=== PATIENT | male | born 1970 | race Caucasian/White ===

== ENCOUNTER → 2017-11-26 09:25 | Outpatient (CLI) | payer MEDICARE, SELFPAY ==
[2017-11-26 09:44] LABS: Basophils % 0.5 % (0.1-2.0); Eosinophils # 0.1 K/mm3 (0.0-0.4); Eosinophils % 2.9 % (0.1-12.0); Hematocrit 35.9 % (42.0-52.0); Hemoglobin 12.1 g/dL (14.1-18.0); Lymphocytes # 1.7 K/mm3 (0.7-4.5); Lymphocytes % 34.5 K/mm3 (10-50); Mean Corpuscular HGB Conc 33.6 g/dL (31.8-35.4); Mean Corpuscular Hemoglobin 30.1 pg (27.0-31.2); Mean Corpuscular Volume 89.6 fl (80-94); Monocytes # 0.2 K/mm3 (0.1-1.0); Monocytes % 4.6 % (1.7-9.3); Neutrophils # 2.8 K/mm3 (1.8-7.8); Neutrophils % 57.5 % (37.0-80.0); Platelet Count 201 K/mm3 (142-424); Red Blood Count 4.01 M/mm3 (4.60-6.20); Red Cell Distribution Width 13.8 % (11.5-17.5); White Blood Count 4.9 K/mm3 (4.8-10.8)
[2017-11-26 10:50] LABS: Anion Gap 11.6 mEq/L (5-15); Blood Urea Nitrogen 15 mg/dL (7-18); Carbon Dioxide 27 mmol/L (21.0-32.0); Chloride 106 mmol/L (98-107); Creatinine,Serum 1.15 mg/dL (0.70-1.30); Estimated Glomerular Filt Rate 68 ml/min (>60); GFR (African American) 82 ML/MIN (>60); Glucose 122 mg/dL (74-106); Potassium 4.6 mmoL/L (3.5-5.1); Sodium 140 mmol/L (136-145)
== END ==
PROVIDERS: PCP Internal Medicine; Visit Provider Internal Medicine
DX: R53.83 Other fatigue (principal); R06.02 Shortness of breath
CPT/HCPCS: 36415; 80048; 83880; 85025

== ENCOUNTER → 2017-12-07 07:35 | Outpatient (CLI) | payer MEDICARE, SELFPAY | PROVIDERS: PCP Internal Medicine; Visit Provider Internal Medicine | DX: R06.09 Other forms of dyspnea (principal); R07.89 Other chest pain; I10 Essential (primary) hypertension; I50.9 Heart failure, unspecified; Z95.0 Presence of cardiac pacemaker; I51.9 Heart disease, unspecified; I27.20 Pulmonary hypertension, unspecified; F41.9 Anxiety disorder, unspecified; I42.5 Other restrictive cardiomyopathy; N18.2 Chronic kidney disease, stage 2 (mild); I67.1 Cerebral aneurysm, nonruptured | CPT/HCPCS: 93017 ==

== ENCOUNTER → 2017-12-29 15:36 | Outpatient (CLI) | payer MEDICARE, SELFPAY ==
[2017-12-29 16:02] LABS: Blood Urea Nitrogen 16 mg/dL (7-18); Carbon Dioxide 31 mmol/L (21.0-32.0); Chloride 101 mmol/L (98-107); Estimated Glomerular Filt Rate 54 ml/min (>60); GFR (African American) 65 ML/MIN (>60); Magnesium 1.6 mg/dL (1.4-2.2); Sodium 138 mmol/L (136-145)
[2017-12-29 16:22] LABS: Glucose 96 mg/dL (74-106)
== END ==
PROVIDERS: Visit Provider Physician Assistant
DX: I10 Essential (primary) hypertension (principal); R06.09 Other forms of dyspnea; I50.9 Heart failure, unspecified; I51.9 Heart disease, unspecified; I27.20 Pulmonary hypertension, unspecified; N18.2 Chronic kidney disease, stage 2 (mild)
CPT/HCPCS: 36415; 80048; 83735

== ENCOUNTER → 2018-03-15 14:07 | Outpatient (CLI) | payer MEDICARE, SELFPAY | PROVIDERS: PCP Internal Medicine; Visit Provider Internal Medicine Cardiovascular Disease | DX: R07.9 Chest pain, unspecified (principal); I10 Essential (primary) hypertension; I51.9 Heart disease, unspecified; R06.00 Dyspnea, unspecified; I27.20 Pulmonary hypertension, unspecified; Z95.0 Presence of cardiac pacemaker | CPT/HCPCS: 93306 ==

== ENCOUNTER → 2018-03-26 07:39 | Outpatient (CLI) | payer MEDICARE, SELFPAY ==
[2018-03-26 09:36] LABS: Anion Gap 14.6 mEq/L (5-15); Blood Urea Nitrogen 22 mg/dL (7-18); Carbon Dioxide 26 mmol/L (21.0-32.0); Chloride 102 mmol/L (98-107); Creatinine,Serum 1.32 mg/dL (0.70-1.30); Estimated Glomerular Filt Rate 58 ml/min (>60); GFR (African American) 70 ML/MIN (>60); Glucose 141 mg/dL (74-106); Potassium 4.6 mmoL/L (3.5-5.1); Sodium 138 mmol/L (136-145)
== END ==
PROVIDERS: Visit Provider Physician Assistant
DX: R06.02 Shortness of breath (principal); I27.20 Pulmonary hypertension, unspecified
CPT/HCPCS: 36415; 80048; 83880

== ENCOUNTER → 2018-09-20 12:04 | Outpatient (CLI) | payer MEDICARE, SELFPAY ==
[2018-09-20 13:18] LABS: Anion Gap 15.4 mEq/L (5-15); Blood Urea Nitrogen 24 mg/dL (7-18); Calcium 9.2 mg/dL (8.5-10.1); Carbon Dioxide 27 mmol/L (21.0-32.0); Chloride 101 mmol/L (98-107); Creatinine,Serum 1.53 mg/dL (0.70-1.30); Estimated Glomerular Filt Rate 48 ml/min (>60); GFR (African American) 59 ML/MIN (>60); Glucose 128 mg/dL (74-106); Potassium 4.4 mmoL/L (3.5-5.1); Sodium 139 mmol/L (136-145)
== END ==
PROVIDERS: Visit Provider Physician Assistant
DX: I51.9 Heart disease, unspecified (principal); N18.2 Chronic kidney disease, stage 2 (mild); R06.00 Dyspnea, unspecified; T82.111A Breakdown (mechanical) of cardiac pulse generator (battery), initial encounter; Z95.0 Presence of cardiac pacemaker
CPT/HCPCS: 36415; 80048

== ENCOUNTER → 2018-11-22 12:20 | Outpatient (CLI) | payer MEDICARE, SELFPAY | PROVIDERS: PCP Internal Medicine; Visit Provider Urology | DX: R00.0 Tachycardia, unspecified (principal); R00.2 Palpitations; R06.09 Other forms of dyspnea | CPT/HCPCS: 93270 ==

== ENCOUNTER → 2018-12-08 10:59 | Outpatient (CLI) | payer MEDICARE, SELFPAY ==
[2018-12-08 12:26] LABS: Anion Gap 12.5 mEq/L (5-15); Blood Urea Nitrogen 21 mg/dL (7-18); Calcium 9.1 mg/dL (8.5-10.1); Carbon Dioxide 29 mmol/L (21.0-32.0); Chloride 104 mmol/L (98-107); Creatinine,Serum 1.35 mg/dL (0.70-1.30); Estimated Glomerular Filt Rate 56 ml/min (>60); GFR (African American) 68 ML/MIN (>60); Glucose 104 mg/dL (74-106); Potassium 4.5 mmoL/L (3.5-5.1); Sodium 141 mmol/L (136-145)
== END ==
PROVIDERS: Visit Provider Urology
DX: I27.20 Pulmonary hypertension, unspecified; I50.9 Heart failure, unspecified; I51.89 Other ill-defined heart diseases; I67.1 Cerebral aneurysm, nonruptured; N18.2 Chronic kidney disease, stage 2 (mild); R00.0 Tachycardia, unspecified; R00.2 Palpitations; R06.09 Other forms of dyspnea; R07.89 Other chest pain; T82.11 Breakdown (mechanical) of cardiac electronic device; Z95.0 Presence of cardiac pacemaker; F41.9 Anxiety disorder, unspecified
CPT/HCPCS: 36415; 80048

== ENCOUNTER → 2018-12-22 14:25 | Outpatient (CLI) | payer MEDICARE, SELFPAY ==
--- NOTE | 2018-12-22 14:28 | CA_ITS ---
PROCEDURE: 2-D M-mode and color Doppler study INDICATIONS FOR THE TEST: Chest pain + COPD Heart Murmur Tobacco Smoking Palpitations Fatigue Syncope Edema Hypertension+Diabetes Mellitus Rheumatic Fever SOB+LEÓN Obesity Hyperlipidemia+ Family History HD Additional History PACER,CHF,PUL HTN,CM,CAD,CKD PATIENT INFORMATION HEIGHT: 68 WEIGHT:231 GENDER: Male B/P:114/70 2-D/M-MODE INTERPRETATION: 2-D MEASUREMENTS OBSERVED VALUES IN CMS Right Ventricular Dimension (RVDd) 1.7 Interventricular Septum (Thickness)(IVsd) 0.9 Left Ventricular Internal Dimensions(LVIDd) 5.7 Left Ventricular Posterior Wall (Thickness)(LVPWd) 0.9 Aortic Root 3.0 Aortic Cusp Separation 2.3 Left Atrial Dimensions (LAD) 3.2 2D 1. Left atrium is mildly enlarged, left ventricle is normal size, mild concentric left ventricular hypertrophy, visually estimated ejection fraction of 55% with no regional wall motion abnormality. 2. The right atrium and right ventricle are mildly enlarged with normal contractility, there is pacemaker lead seen in the right atrium and right ventricle. 3. The aortic valve is thickened and calcified leaflet continue to display mobility. 4. The mitral and tricuspid valve leaflets are minimally thickened. 5. The pulmonic valve is poorly visualized. 6. No significant pericardial effusion noted. DOPPLER INTERROGATION: Doppler interrogation of the aortic, mitral and tricuspid valvular presence of mild mitral and tricuspid regurgitation, tricuspid regurgitation jet velocity is inadequate for calculation of the right ventricular systolic pressure, diastolic parameters are inconclusive. CONCLUSION: 1. Biatrial enlargement, normal left ventricular size, mild concentric left ventricular hypertrophy, visually estimated ejection fraction of 55% with no regional wall motion abnormality, diastolic parameters are inconclusive. 2. Mildly enlarged right ventricle with normal contractility. 3. Mild mitral and tricuspid regurgitation 4. No significant pericardial effusion noted.
== END ==
PROVIDERS: PCP Internal Medicine; Visit Provider Internal Medicine
DX: I50.9 Heart failure, unspecified; I27.20 Pulmonary hypertension, unspecified; I42.5 Other restrictive cardiomyopathy; I51.89 Other ill-defined heart diseases; N18.2 Chronic kidney disease, stage 2 (mild); R06.09 Other forms of dyspnea
CPT/HCPCS: 93306

== ENCOUNTER → 2019-01-12 16:05 | Outpatient (CLI) | payer MEDICARE, SELFPAY ==
[2019-01-12 19:46] LABS: Anion Gap 13.7 mEq/L (5-15); Blood Urea Nitrogen 21 mg/dL (7-18); Calcium 9.4 mg/dL (8.5-10.1); Carbon Dioxide 29 mmol/L (21.0-32.0); Chloride 102 mmol/L (98-107); Estimated Glomerular Filt Rate 58 ml/min (>60); GFR (African American) 71 ML/MIN (>60); Glucose 104 mg/dL (74-106); Potassium 3.7 mmoL/L (3.5-5.1); Sodium 141 mmol/L (136-145)
== END ==
PROVIDERS: Visit Provider Urology
DX: I42.5 Other restrictive cardiomyopathy (principal); R06.09 Other forms of dyspnea; Z95.0 Presence of cardiac pacemaker
CPT/HCPCS: 36415; 80048; 83880

== ENCOUNTER → 2019-01-27 13:47 | Outpatient (CLI) | payer MEDICARE, SELFPAY | PROVIDERS: PCP Internal Medicine; Visit Provider Internal Medicine Cardiovascular Disease | DX: R00.2 Palpitations (principal) | CPT/HCPCS: 93005 ==

== ENCOUNTER → 2019-05-20 08:25 | Outpatient (CLI) | payer MEDICARE, SELFPAY ==
[2019-05-20 09:18] LABS: Basophils % 0.7 % (0.1-2.0); Eosinophils # 0.2 K/mm3 (0.0-0.4); Hemoglobin 12.1 g/dL (14.1-18.0); Lymphocytes # 1.6 K/mm3 (0.7-4.5); Lymphocytes % 37.2 % (10-50); Mean Corpuscular Hemoglobin 27.9 pg (27.0-31.2); Mean Corpuscular Volume 87.1 fl (80-94); Monocytes # 0.2 K/mm3 (0.1-1.0); Monocytes % 4.5 % (1.7-9.3); Neutrophils # 2.3 K/mm3 (1.8-7.8); Neutrophils % 53.6 % (37.0-80.0); Platelet Count 209 K/mm3 (142-424); Red Blood Count 4.36 M/mm3 (4.60-6.20); Red Cell Distribution Width 14.4 % (11.5-17.5); White Blood Count 4.3 K/mm3 (4.8-10.8)
[2019-05-20 10:19] LABS: Alanine Aminotransferase 97 U/L (12-78); Albumin Level 3.8 gm/dL (3.4-5.0); Albumin/Globulin Ratio 1.2 (1.1-1.8); Alkaline Phosphatase 65 U/L (46-116); Aspartate Amino Transferase 54 U/L (15-37); Bilirubin,Total 1.3 mg/dL (0.2-1.0); Blood Urea Nitrogen 21 mg/dL (7-18); Calcium 9.2 mg/dL (8.5-10.1); Carbon Dioxide 30 mmol/L (21.0-32.0); Chloride 100 mmol/L (98-107); Chol/HDL Ratio 7.2 (1-3.5); Cholesterol 201 mg/dL (140-200); Creatinine,Serum 1.27 mg/dL (0.70-1.30); Estimated Glomerular Filt Rate 60 ml/min (>60); GFR (African American) 73 ML/MIN (>60); Globulin 3.1 gm/dl (1.3-3.2); Glucose 170 mg/dL (74-106); HDL Cholesterol 28 mg/dL (27-67); Sodium 137 mmol/L (136-145); Thyroid Stimulating Hormone 1.56 uIU/ml (0.358-3.740); Total Protein,Serum 6.9 gm/dL (6.4-8.2)
[2019-05-20 10:40] LABS: Triglycerides 541 mg/dL (30-200)
[2019-05-20 11:11] LABS: Erythrocyte Sedimentation Rate 19 mm/hr (0-15)
[2019-05-20 12:52] LABS: Hemoglobin A1C 7.6 % (0.0-7.0)
[2019-05-21 18:42] LABS: Folate 15.3 ng/mL (>3.0); Vitamin B12 479 pg/mL (232-1245)
== END ==
PROVIDERS: Visit Provider Internal Medicine
DX: I10 Essential (primary) hypertension (principal); G60.9 Hereditary and idiopathic neuropathy, unspecified; E78.5 Hyperlipidemia, unspecified; Z79.899 Other long term (current) drug therapy
CPT/HCPCS: 36415; 80053; 80061; 82607; 82746; 83036; 83655; 84443; 85025; 85651

== ENCOUNTER → 2019-07-26 11:14 | Outpatient (CLI) | payer MEDICARE, SELFPAY ==
[2019-07-26 11:20] LABS: Basophils % 0.6 % (0.1-2.0); Eosinophils # 0.2 K/mm3 (0.0-0.4); Eosinophils % 2.9 % (0.1-12.0); Hematocrit 39.2 % (42.0-52.0); Hemoglobin 12.5 g/dL (14.1-18.0); Lymphocytes # 2.3 K/mm3 (0.7-4.5); Lymphocytes % 33.4 % (10-50); Mean Corpuscular HGB Conc 31.9 g/dL (31.8-35.4); Mean Corpuscular Volume 90.9 fl (80-94); Mean Platelet Volume 9.4 fl (7.4-10.4); Monocytes # 0.3 K/mm3 (0.1-1.0); Monocytes % 4.5 % (1.7-9.3); Neutrophils % 58.7 % (37.0-80.0); Platelet Count 254 K/mm3 (142-424); Red Blood Count 4.31 M/mm3 (4.60-6.20); Red Cell Distribution Width 14.8 % (11.5-17.5); White Blood Count 6.8 K/mm3 (4.8-10.8)
--- NOTE | 2019-07-26 14:11 | CT_ITS ---
PROCEDURE: CT ABDOMEN PELVIS WO CON CLINICAL HISTORY: LLQ,RLQ PAIN NAUSEA AND VOMITING COMPARISON: ABDPELW/O CT ABD PELVIS W/O CONTRAST from 05/22/2013 TECHNIQUE: Axial images obtained with sagittal and coronal reformats. All CT scans at the facility use one or more dose reduction, viz: automated exposure control, ma/kV adjustment per patient size (including targeted exams where dose is matched to indication, i.e. head), or iterative reconstruction technique. FINDINGS: Lung bases are clear. Liver is borderline slightly lower density compared to the spleen without focal abnormality. Gallbladder, pancreas, spleen, adrenal glands and kidneys are normal. Visualized portions of the ureters and urinary bladder are normal. Aorta is normal. GI tract is unremarkable without dilatation or wall thickening. Appendix is normal. There is no free air or ascites. There is diffuse peristalsis of the entire sigmoid colon. Pelvic structures are otherwise normal. There is no acute osseous process. IMPRESSION: Borderline mild hepatic steatosis. No acute abnormality. Dictated by: Tenzin Shannon 07/26/2019 14:38 Electronically signed by Tenzin Shannon in [facility] 07/26/2019 14:38
== END ==
LOC: LAB.DROPOF 11:56 → RAD 12:30
PROVIDERS: PCP Internal Medicine; Visit Provider Internal Medicine
DX: R10.31 Right lower quadrant pain (principal); R10.32 Left lower quadrant pain; R11.2 Nausea with vomiting, unspecified
CPT/HCPCS: 74176; 85025

== ENCOUNTER → 2019-09-08 13:22 | Outpatient (CLI) | payer MEDICARE, SELFPAY ==
--- NOTE | 2019-09-08 13:23 | CT_ITS ---
PROCEDURE: CT CHEST WO CON CLINICAL INDICATION: constrictive pericarditis Chest pain, shortness of air, constrictive pericarditis COMPARISON: CTAC CTA-CHEST from 11/10/2016 CT ABDOMEN PELVIS WO CON from 07/26/2019 TECHNIQUE: Axial images obtained with sagittal and coronal reformats. All CT scans at the facility use one or more dose reduction, viz: automated exposure control, ma/kV adjustment per patient size (including targeted exams where dose is matched to indication, i.e. head), or iterative reconstruction technique. FINDINGS: HEART: Bipolar pacemaker is present from left subclavian approach. There is normal heart size. The pericardium does not appear thickened. No pericardial effusion. No evidence of aortic aneurysm MEDIASTINAL AND HILAR STRUCTURES: No mediastinal or hilar mass evident. No dominant adenopathy. LUNGS:There is a 4 mm nodule in the right upper lobe anteriorly and a 4 mm nodule in the right upper lobe laterally. These may been present previously but difficult to ascertain due to mild degree of motion artifact on that exam. A fissural nodule is present in the right major fissure. Calcified granulomas are present in the right lower lobe and there are calcified nodes in the right hilum. A subpleural 8 mm nodules present in the right upper lobe posteriorly in the para fissural region. PLEURAL SPACES: No significant effusion. No evidence of pneumothorax. BONY STRUCTURES: No acute bony abnormalities apparent. LYMPH NODES: No enlarged lymph nodes evident. UPPER ABDOMEN: Unremarkable. ADDITIONAL FINDINGS: No other significant abnormalities. IMPRESSION: 1. No evidence pericardial thickening or pericardial effusion. The pericardium is smooth and thin in nature without obvious thickening. 2. Scattered noncalcified pulmonary nodules on the right. It is uncertain whether these were present on the previous study due to the very poor inspiration and vascular crowding on that exam with mild motion artifact. Six-month follow-up suggested to confirm stability Dictated by: Gil Carrillo MD 09/09/2019 18:21 Electronically signed by Gil Carrillo MD in [facility] 09/10/2019 07:52
== END ==
PROVIDERS: PCP Internal Medicine; Visit Provider Internal Medicine
DX: I31.9 Disease of pericardium, unspecified; I27.20 Pulmonary hypertension, unspecified; I50.9 Heart failure, unspecified; E78.5 Hyperlipidemia, unspecified; R06.00 Dyspnea, unspecified; R94.31 Abnormal electrocardiogram [ECG] [EKG]; Z82.49 Family history of ischemic heart disease and other diseases of the circulatory system; Z95.0 Presence of cardiac pacemaker
CPT/HCPCS: 71250

== ENCOUNTER → 2019-09-19 08:34 | Outpatient (CLI) | payer MEDICARE, SELFPAY ==
[2019-09-19 10:24] LABS: Anion Gap 13.2 mEq/L (5-15); Blood Urea Nitrogen 13 mg/dL (7-18); Calcium 8.9 mg/dL (8.5-10.1); Carbon Dioxide 28 mmol/L (21.0-32.0); Chloride 103 mmol/L (98-107); Creatinine,Serum 1.21 mg/dL (0.70-1.30); Estimated Glomerular Filt Rate 63 ml/min (>60); GFR (African American) 76 ML/MIN (>60); Glucose 113 mg/dL (74-106); Potassium 4.2 mmoL/L (3.5-5.1); Sodium 140 mmol/L (136-145)
== END ==
PROVIDERS: Visit Provider Internal Medicine
DX: E78.5 Hyperlipidemia, unspecified (principal); I25.10 Atherosclerotic heart disease of native coronary artery without angina pectoris; I27.20 Pulmonary hypertension, unspecified; I31.1 Chronic constrictive pericarditis; R06.00 Dyspnea, unspecified; Z95.0 Presence of cardiac pacemaker; I11.0 Hypertensive heart disease with heart failure; I50.9 Heart failure, unspecified
CPT/HCPCS: 36415; 80048; 83880

== ENCOUNTER → 2019-09-28 15:20 | Outpatient (CLI) | payer MEDICARE, SELFPAY ==
[2019-09-28 16:30] LABS: Anion Gap 14.3 mEq/L (5-15); Blood Urea Nitrogen 17 mg/dL (7-18); Calcium 8.8 mg/dL (8.5-10.1); Carbon Dioxide 32 mmol/L (21.0-32.0); Chloride 100 mmol/L (98-107); Creatinine,Serum 1.33 mg/dL (0.70-1.30); Estimated Glomerular Filt Rate 57 ml/min (>60); GFR (African American) 69 ML/MIN (>60); Glucose 148 mg/dL (74-106); Potassium 3.3 mmoL/L (3.5-5.1); Sodium 143 mmol/L (136-145)
== END ==
PROVIDERS: Visit Provider Nurse Practitioner Family
DX: E78.5 Hyperlipidemia, unspecified (principal); I25.10 Atherosclerotic heart disease of native coronary artery without angina pectoris; I27.20 Pulmonary hypertension, unspecified; I50.30 Unspecified diastolic (congestive) heart failure; R06.00 Dyspnea, unspecified; Z95.0 Presence of cardiac pacemaker
CPT/HCPCS: 36415; 80048

== ENCOUNTER → 2019-10-03 09:47 | Outpatient (CLI) | payer MEDICARE, SELFPAY ==
[2019-10-03 11:17] LABS: Anion Gap 15.2 mEq/L (5-15); Blood Urea Nitrogen 19 mg/dL (7-18); Calcium 9.3 mg/dL (8.5-10.1); Carbon Dioxide 31 mmol/L (21.0-32.0); Chloride 100 mmol/L (98-107); Creatinine,Serum 1.48 mg/dL (0.70-1.30); Estimated Glomerular Filt Rate 50 ml/min (>60); GFR (African American) 61 ML/MIN (>60); Glucose 201 mg/dL (74-106); Potassium 4.2 mmoL/L (3.5-5.1); Sodium 142 mmol/L (136-145)
== END ==
PROVIDERS: Visit Provider Physician Assistant
DX: I25.10 Atherosclerotic heart disease of native coronary artery without angina pectoris; E78.5 Hyperlipidemia, unspecified; I27.20 Pulmonary hypertension, unspecified; I50.30 Unspecified diastolic (congestive) heart failure; R06.00 Dyspnea, unspecified; Z95.0 Presence of cardiac pacemaker
CPT/HCPCS: 36415; 80048

== ENCOUNTER → 2019-11-28 13:03 | Outpatient (CLI) | payer MEDICARE, SELFPAY ==
[2019-11-28 15:27] LABS: Anion Gap 14.9 mEq/L (5-15); Blood Urea Nitrogen 13 mg/dL (7-18); Calcium 9.1 mg/dL (8.5-10.1); Carbon Dioxide 30 mmol/L (21.0-32.0); Chloride 102 mmol/L (98-107); Creatinine,Serum 1.32 mg/dL (0.70-1.30); Estimated Glomerular Filt Rate 57 ml/min (>60); GFR (African American) 69 ML/MIN (>60); Glucose 124 mg/dL (74-106); Magnesium 1.9 mg/dL (1.4-2.2); Potassium 3.9 mmoL/L (3.5-5.1); Sodium 143 mmol/L (136-145)
== END ==
PROVIDERS: Visit Provider Physician Assistant
DX: I50.30 Unspecified diastolic (congestive) heart failure (principal)
CPT/HCPCS: 36415; 80048; 83735; 83880

== ENCOUNTER → 2019-12-05 11:05 | Outpatient (CLI) | payer MEDICARE, SELFPAY ==
[2019-12-05 12:49] LABS: Anion Gap 18.6 mEq/L (5-15); Blood Urea Nitrogen 15 mg/dL (7-18); Calcium 9.1 mg/dL (8.5-10.1); Carbon Dioxide 27 mmol/L (21.0-32.0); Chloride 101 mmol/L (98-107); Creatinine,Serum 1.47 mg/dL (0.70-1.30); Estimated Glomerular Filt Rate 51 ml/min (>60); GFR (African American) 61 ML/MIN (>60); Glucose 226 mg/dL (74-106); Magnesium 1.8 mg/dL (1.4-2.2); Potassium 3.6 mmoL/L (3.5-5.1); Sodium 143 mmol/L (136-145)
== END ==
PROVIDERS: Visit Provider Physician Assistant
DX: I50.30 Unspecified diastolic (congestive) heart failure; E78.5 Hyperlipidemia, unspecified; I25.10 Atherosclerotic heart disease of native coronary artery without angina pectoris; I27.20 Pulmonary hypertension, unspecified; R06.00 Dyspnea, unspecified; Z95.0 Presence of cardiac pacemaker
CPT/HCPCS: 36415; 80048; 83735; 83880

== ENCOUNTER → 2019-12-27 11:28 | Outpatient (CLI) | payer MEDICARE, SELFPAY ==
[2019-12-27 13:07] LABS: Chloride 98 mmol/L (98-107); Potassium 3.7 mmoL/L (3.5-5.1); Sodium 131 mmol/L (136-145)
[2019-12-27 13:10] LABS: Blood Urea Nitrogen 16 mg/dl (9-20); Estimated Glomerular Filt Rate 71 ml/min (>60); GFR (African American) 85 ML/MIN (>60)
[2019-12-27 13:11] LABS: Anion Gap 9.7 mEq/L (5-15); Calcium 9.7 mg/dl (8.4-10.2); Carbon Dioxide 27 mmol/L (22.0-30.0); Glucose 172 mg/dl (74-100)
== END ==
PROVIDERS: Visit Provider Physician Assistant
DX: E78.5 Hyperlipidemia, unspecified (principal); I10 Essential (primary) hypertension; I25.10 Atherosclerotic heart disease of native coronary artery without angina pectoris; I27.20 Pulmonary hypertension, unspecified; I50.30 Unspecified diastolic (congestive) heart failure; Z95.0 Presence of cardiac pacemaker
CPT/HCPCS: 36415; 80048

== ENCOUNTER → 2020-03-15 13:35 | Outpatient (CLI) | payer MEDICARE, SELFPAY ==
--- NOTE | 2020-03-15 13:48 | CT_ITS ---
PROCEDURE: CT CHEST WO CON CLINICAL HISTORY: Follow-up pulmonary nodules COMPARISON: CTAHWCCAGF CTA HEART W/CONT CORONARY AGF from 06/29/2015 CT CHEST WO CON from 09/08/2019 CT CHEST WO CON from 03/15/2020 TECHNIQUE: Axial images obtained with sagittal and coronal reformats. All CT scans at the facility use one or more dose reduction, viz: automated exposure control, ma/kV adjustment per patient size (including targeted exams where dose is matched to indication, i.e. head), or iterative reconstruction technique. FINDINGS: Exam was originally performed on 03/15/2020 however, this was performed with the patient in expiration which could obscure small nodules. Therefore, the patient was brought back and re-scanned at no additional charge on 03/20/2020. Pacemaker is present from left subclavian approach. Normal heart size. No mediastinal or hilar mass or adenopathy. Sub cm nodule present in the right lobe of the thyroid gland nonspecific. For fissural nodule on the right unchanged.. No new nodules evident. Mm noncalcified nodule is present the in the right upper lobe image 32 series 3 unchanged. 3 mm nodule right upper lobe centrally image 23 series 3 unchanged Upper abdominal images are unremarkable. There is some mild thickening of the distal esophagus which is nonspecific. Pericardium does not appear thickened IMPRESSION: Stable CT appearance of the chest. Stable right upper lobe nodules. Consider yearly follow-up Dictated by: Gil Carrillo MD 03/16/2020 15:37 Electronically signed by Gil Carrillo MD in [facility] 03/21/2020 11:22
[2020-03-15 15:56] LABS: Anion Gap 17.6 mEq/L (5-15); Blood Urea Nitrogen 21 mg/dl (9-20); Calcium 10.3 mg/dl (8.4-10.2); Carbon Dioxide 25 mmol/L (22.0-30.0); Chloride 97 mmol/L (98-107); Estimated Glomerular Filt Rate 58 ml/min (>60); GFR (African American) 70 ML/MIN (>60); Glucose 182 mg/dl (74-100); Potassium 3.6 mmoL/L (3.5-5.1); Sodium 136 mmol/L (136-145)
== END ==
PROVIDERS: Physician Assistant; PCP Internal Medicine; Visit Provider Internal Medicine
DX: R91.1 Solitary pulmonary nodule; E78.5 Hyperlipidemia, unspecified; I25.10 Atherosclerotic heart disease of native coronary artery without angina pectoris; I27.20 Pulmonary hypertension, unspecified; I50.30 Unspecified diastolic (congestive) heart failure; I50.9 Heart failure, unspecified; Z95.0 Presence of cardiac pacemaker
CPT/HCPCS: 36415; 71250; 80048

== ENCOUNTER → 2020-03-20 09:12 | Outpatient (CLI) | payer MEDICARE, SELFPAY ==
--- NOTE | 2020-03-20 09:18 | CT_ITS ---
PROCEDURE: REPEAT VIEW CT CLINICAL HISTORY: Follow-up pulmonary nodules COMPARISON: CTAHWCCAGF CTA HEART W/CONT CORONARY AGF from 06/29/2015 CT CHEST WO CON from 09/08/2019 CT CHEST WO CON from 03/15/2020 TECHNIQUE: Axial images obtained with sagittal and coronal reformats. All CT scans at the facility use one or more dose reduction, viz: automated exposure control, ma/kV adjustment per patient size (including targeted exams where dose is matched to indication, i.e. head), or iterative reconstruction technique. FINDINGS: Exam was originally performed on 03/15/2020 however, this was performed with the patient in expiration which could obscure small nodules. Therefore, the patient was brought back and re-scanned at no additional charge on 03/20/2020. Pacemaker is present from left subclavian approach. Normal heart size. No mediastinal or hilar mass or adenopathy. Sub cm nodule present in the right lobe of the thyroid gland nonspecific. For fissural nodule on the right unchanged.. No new nodules evident. Mm noncalcified nodule is present the in the right upper lobe image 32 series 3 unchanged. 3 mm nodule right upper lobe centrally image 23 series 3 unchanged Upper abdominal images are unremarkable. There is some mild thickening of the distal esophagus which is nonspecific. Pericardium does not appear thickened IMPRESSION: Stable CT appearance of the chest. Stable right upper lobe nodules. Consider yearly follow-up Dictated by: Gil Carrillo MD 03/21/2020 11:20 Electronically signed by Gil Carrillo MD in [facility] 03/21/2020 11:21
== END ==
PROVIDERS: PCP Internal Medicine; Visit Provider Internal Medicine
DX: R91.1 Solitary pulmonary nodule (principal)

== ENCOUNTER → 2020-03-29 14:37 | Outpatient (CLI) | payer MEDICARE, SELFPAY | PROVIDERS: PCP Internal Medicine; Visit Provider Physician Assistant | DX: R06.00 Dyspnea, unspecified (principal); I25.10 Atherosclerotic heart disease of native coronary artery without angina pectoris; I27.20 Pulmonary hypertension, unspecified; I50.30 Unspecified diastolic (congestive) heart failure; E78.5 Hyperlipidemia, unspecified; Z95.0 Presence of cardiac pacemaker | CPT/HCPCS: 94060; 94640; 94726; 94729 ==

== ENCOUNTER 2020-06-30 14:33 | Emergency (ER) | payer MEDICARE, SELFPAY ==
--- NOTE | 2020-06-30 14:27 | ECG_ITS ---
APPROVED REPORT Exam: Resting ECG HR:61 bpm ECG Measurements Heart Rate 61 AXES RI P 71 QRSd 186 QRS -79 QT 484 T 86 QTc 487 <Conclusion> pacemaker rhythm Electronically signed by : Haseeb Brewer, 07/03/2020 12:38:49
[2020-06-30 14:33] VITALS: BP 130/100; PULSE 89; RESP 17; TEMP 37; O2SAT 100; BMI 32.6
--- NOTE | 2020-06-30 14:36 | XR_ITS ---
PROCEDURE: XR CHEST PORTABLE CLINICAL HISTORY: chest pain COMPARISON: CR CXR CHEST(2 VIEWS-NOT PORTABLE) from 03/27/2015 CR CXR CHEST(2 VIEWS-NOT PORTABLE) from 07/04/[address] CHEST WO CON from 03/15/2020 FINDINGS: Normal heart size. Bipolar pacemaker is present from left subclavian approach. The RV lead is looped over the left side of the heart with the tip in the region of the right ventricle not significantly changed The lungs are clear without infiltrates, suspicious nodules, or pleural effusions. No acute bony abnormalities. IMPRESSION: No acute findings. Dictated by: Gil Carrillo MD 06/30/2020 14:53 Gil Carrillo MD in [facility] 06/30/2020 14:53
[2020-06-30 14:48] LABS: Basophils # 0.1 K/mm3 (0-0.2); Basophils % 0.5 % (0.1-2.0); Eosinophils # 0.4 K/mm3 (0.0-0.4); Eosinophils % 3.9 % (0.1-12.0); Hematocrit 42.8 % (42.0-52.0); Hemoglobin 14.4 g/dL (14.1-18.0); Lymphocytes # 2.5 K/mm3 (0.7-4.5); Lymphocytes % 24.4 % (10-50); Mean Corpuscular HGB Conc 33.7 g/dL (31.8-35.4); Mean Corpuscular Hemoglobin 30.5 pg (27.0-31.2); Mean Corpuscular Volume 90.6 fl (80-94); Mean Platelet Volume 8.5 fl (7.4-10.4); Monocytes # 0.4 K/mm3 (0.1-1.0); Monocytes % 3.5 % (1.7-9.3); Neutrophils # 6.9 K/mm3 (1.8-7.8); Neutrophils % 67.7 % (37.0-80.0); Platelet Count 299 K/mm3 (142-424); Red Blood Count 4.72 M/mm3 (4.60-6.20); Red Cell Distribution Width 14.7 % (11.5-17.5); White Blood Count 10.2 K/mm3 (4.8-10.8)
[2020-06-30 14:52] LABS: Chloride 100 mmol/L (98-107); Potassium 3.8 mmoL/L (3.5-5.1); Sodium 143 mmol/L (136-145)
--- NOTE | 2020-06-30 14:52 | HMH.EDCP ---
ED Disposition Clinical Impression: Atypical chest pain Disposition: Home, Self-Care Condition on Discharge: Good Instructions: DI for Atypical Chest Pain Referrals: PCP,Dianna [Non-Staff] - 3 days Hermes Clifton MD [Staff Physician] - 3 days - Critical Care Critical Care Time: No Attestation: On 06/30/20, the high probability of a clinically significant, sudden or life threatening deterioration of the following system(s) required my full and direct attention, intervention and personal management. The time I documented below is in addition to time spent performing reported procedures but includes the following listed in this critical care notation. Medical Decision Making - Medical Records Medical records reviewed: Yes: I reviewed the patient's medical records. - Hipolito Inquiry Pt receiving controlled substance: No Vital Signs: 06/30/20 14:33 Temperature 98.6 F Temperature Source Oral Pulse Rate [Left Radial] 89 Respiratory Rate 17 Blood Pressure [Right Arm] 130/100 H Blood Pressure Mean [Right Arm] 110 Blood Pressure Source [Right Arm] Automatic Cuff Blood Pressure Position [Right Arm] Sitting 02 Sat by Pulse Oximetry 100 Oxygen Delivery Method Room Air - Lab Data Lab results reviewed: Yes: I reviewed the patient's lab results. Lab Results 06/30/20 14:30: WBC 10.2, RBC 4.72, Hgb 14.4, Hct 42.8, MCV 90.6, MCH 30.5, MCHC 33.7, RDW 14.7, Plt Count 299, MPV 8.5, Neut % (Auto) 67.7, Lymph % (Auto) 24.4, Quay % (Auto) 3.5, Eos % (Auto) 3.9, Baso % (Auto) 0.5, Neut # (Auto) 6.9, Lymph # (Auto) 2.5, Quay # (Auto) 0.4, Eos # (Auto) 0.4, Baso # (Auto) 0.1 06/30/20 14:30: Sodium 143, Potassium 3.8, Chloride 100, Carbon Dioxide 29, Anion Gap 17.8 H, BUN 17, Creatinine 1.50 H, Estimated Creat Clear 80, Estimated GFR 49 L, Est GFR ( Amer) 60, Glucose 180 H, Calcium 10.6 H, Total Bilirubin 2.2 H, AST 45, ALT 46, Alkaline Phosphatase 45, Total Protein 8.4 H, Albumin 5.1 H, Globulin 3.3 H, Albumin/Globulin Ratio 1.5 06/30/20 14:30: Troponin I < 0.01, Lipase 69 06/30/20 17:38: Troponin I < 0.01 Result diagrams: 06/30/20 14:30 06/30/20 14:30 Orders (Tests/Meds): ED MEDICATIONS Generic Name Dose Route Start Last Admin Trade Name Freq PRN Reason Stop Dose Admin Sodium Chloride 1,000 mls @ 999 mls/hr 06/30/20 15:30 06/30/20 16:19 Sod Chlor 0.9% 1000ml Bag IV 06/30/20 16:30 999 mls/hr .Q1H1M KYAW Administration Discontinued Medications Generic Name Dose Route Start Last Admin Trade Name Freq PRN Reason Stop Dose Admin Aspirin 243 mg 06/30/20 14:36 06/30/20 14:46 Aspirin 81mg Chewable Tablet PO 06/30/20 14:37 243 mg ONCE ONE Administration ORDERS Category Date Time Status Troponin I Q3H Lab 06/30/20 20:45 Ordered - Radiology Data #1 Image(s): Chest Image Reviewed: Yes I reviewed the patient's radiology image Preliminary Findings: Normal/NAD - ECG Data Tracing #1 EKG at 1427 shows a paced rhythm with a rate of 61. Expected wide QRS complex with no obvious STEMI. Normal QTC. EKG interpreted by me. Medical Decision Narrative: Patient here with left-sided chest pain already resolving upon his presentation here. He has not had residual chest pain while in the emergency department. Symptoms are more consistent with a muscle spasm or pleuritic type etiology. Chest x-ray shows no signs of pneumonia, pneumothorax, widened mediastinum would suggest dissection or florid pulmonary edema. He remains in no distress here, no shortness of breath that would suggest pulmonary embolus. Troponins x2 with approximately 3-hour delta are negative. EKG shows paced rhythm, no signs of acute abnormalities. Advised follow-up with primary care Dr. Clifton within the next 2 to 3 days. Chest Pain HPI - General Chief Complaint: Chest Pain Stated Complaint: chest pain Time Seen by Provider: 06/30/20 14:52 Mode of Arrival: Ambulatory Source of Information: Patient Alves
[2020-06-30 14:54] LABS: Lipase 69 U/L (23-300)
[2020-06-30 14:55] LABS: Alanine Aminotransferase 46 U/L (12-78); Albumin Level 5.1 g/dl (3.5-5.0); Albumin/Globulin Ratio 1.5 (1.1-1.8); Alkaline Phosphatase 45 U/L (38-126); Anion Gap 17.8 mEq/L (5-15); Aspartate Amino Transferase 45 U/L (17-59); Bilirubin,Total 2.2 mg/dl (0.2-1.3); Blood Urea Nitrogen 17 mg/dl (9-20); Carbon Dioxide 29 mmol/L (22.0-30.0); Creatinine Clearance Estimated 80 mL/min (50-200); Estimated Glomerular Filt Rate 49 ml/min (>60); GFR (African American) 60 ML/MIN (>60); Globulin 3.3 g/dL (1.3-3.2); Total Protein,Serum 8.4 g/dl (6.3-8.2)
[2020-06-30 14:56] LABS: Calcium 10.6 mg/dl (8.4-10.2); Glucose 180 mg/dl (74-100)
[2020-06-30 15:08] LABS: Troponin I < 0.01 ng/ml (0.00-0.034)
[2020-06-30 18:09] LABS: Troponin I < 0.01 ng/ml (0.00-0.034)
[2020-06-30 18:27] VITALS: BP 154/87; PULSE 80; RESP 18; TEMP 36.8; O2SAT 100
== END 2020-06-30 18:27 | disposition home or self-care (01) ==
PROVIDERS: Emergency Provider Emergency Medicine; PCP Internal Medicine
DX: R07.89 Other chest pain (principal); E11.65 Type 2 diabetes mellitus with hyperglycemia; E78.5 Hyperlipidemia, unspecified; I10 Essential (primary) hypertension; F41.9 Anxiety disorder, unspecified; I25.10 Atherosclerotic heart disease of native coronary artery without angina pectoris; Z79.899 Other long term (current) drug therapy
CPT/HCPCS: 71045; 80053; 83690; 84484; 85025; 93005; 96365; 99283

== ENCOUNTER → 2020-07-09 06:38 | Outpatient (CLI) | payer MEDICARE, SELFPAY ==
--- NOTE | 2020-07-09 06:39 | CA_ITS ---
APPROVED REPORT Exam: Pharmacologic Technologist: Rachelle Clifford Ht: 5 ft 8 in Wt: 225 lbs BSA: 2.15 m2 HR: 60 bpm BP: 138/77 mmHg Indications: Chest pain, Shortness of Air Medical History Medications: Furosemide (LASIX),,,,, Aspirin,,,,, Metformin,,,,, Atorvastatin,,,,, BisOPROLOL,,,,, Fluoxetine,,,,, SpirOnolactone,,,,, EMpagliflozin,,,,, PSYLium husk,,,,, Stress Test Details Test: LEXISCAN HR Resting HR: 60 bpm Max Heart Rate (APMHR): 169 bpm Max HR Achieved: 80 bpm Target HR (85% APMHR): 143 bpm % of APMHR: 47 Recovery HR: 63 bpm BP Resting BP: 138.0/77.0 mmHg Max BP: 138.0/77.0 mmHg Recovery BP: 102.0/80.0 mmHg ECG Clinical Exercise duration: 04:00 min Highest Stage Achieved: Exercise capacity: 1.0 METs Stress ECG Conclusion Resting ECG: Sinus Rhythm (PPM in place) Lexiscan portion complete. Patient complained of shortness of breath and chest pain during peak infusion. Symptoms: Chest pain and shortness of breath during peak infusion, resolved in recovery. Arrhythmias/Ectopy: Paced rhythm intermittent. ST-T Changes: Less than 1.5 Conclusion: Images to follow. Test Summary REST . . . . . . . Resting REST 01:26 . . 60 . 138/ 77 . . Stage 1 . . . . . . . Myoview Injected Stage 1 01:00 . . 71 . . . . Stage 2 01:00 . . 67 . 117/ 69 . . Stage 3 01:00 . . 66 . 114/ 79 . . Stage 4 01:00 . . 61 . 115/ 72 . Stop exercise at 04:00 RECOVERY 01:00 . . 61 . 102/ 80 . . RECOVERY 02:00 . . 61 . 102/ 80 . . RECOVERY 03:00 . . 73 . 119/ 71 . . RECOVERY 04:00 . . 60 . 102/ 80 . . RECOVERY 04:02 . . 59 . 102/ 80 . . Electronically signed by : Henry Martinez, 07/09/2020 22:08:06
--- NOTE | 2020-07-09 06:39 | NM_ITS ---
APPROVED REPORT Exam: Nuclear Stress Test Indication: Chest pain, SOB, Fatigue, HTN, DM, Family history, Pacemaker Patient Location: Outpatient Stress Tech: Rachelle Clifford NM Tech:Sandhya Bravo, ARRT, RT (R)(N) Ht: 5 ft 8 in Wt: 225 lbs HR: 60 bpm BP: 138/77 mmHg BSA: 2.15 m2 BMI: 34.2 History: Chest pain, SOB, Fatigue, HTN, DM, Family history, Pacemaker Procedure: Patient received a 0.4 mg of intravenous Lexiscan, resting heart rate 60 bpm, resting blood pressure 138/77 mmHg, with Lexiscan maximum heart rate achived was 67 bpm which is Less than 85 % of the maximum predicted heart rate and blood pressure was 117/69 mmHg. With Lexiscan, patient denied any complaint of chest pain. Electrocardiogram Resting electrocardiogram showed atrially paced rhythm, nonspecific ST-T changes, with Lexiscan there is intermittent AV sequentially paced rhythm with left bundle branch morphology. Less than 1.[address] segment depression noted from the baseline EKG. The EKG portion of the Lexiscan Myoview is nondiagnostic. Cardiac Stress and Resting SPECT Images: Cardiac Stress and Resting SPECT images were obtained using technetium 99m Myoview 30.1 mCi stress and 10.26 mCi at rest. Gated SPECT for analysis of segmental wall motion and calculation of the ejection fraction also done. Cardiac stress and resting SPECT images show uniform myocardial activity without segmental perfusion abnormality, computer derived ejection fraction 32% with left ventricle is globally hypokinetic, right ventricle is normal size and contractility. Conclusion: 1. The EKG portion of the Lexiscan Myoview is nondiagnostic. 2. No scintigraphic evidence of reversible ischemia seen. Computer derived ejection fraction 32% with left ventricular global hypokinesis, right ventricle is normal size and contractility. 3. Abnormal Lexiscan Myoview study due to low ejection fraction. Electronically signed by : Henry Martinez, 07/09/2020 22:10:30
--- NOTE | 2020-07-09 09:50 | HMH.ITSHM ---
Current Home Medications as stated by this patient WillIbrahima Swartz or sales representative health insurance. []SPIRONOLACTONE METFORMIN FUROSEMIDE FLUOXETINE EMPAGLIFLOZIN BISOPROLOL ATORVASTATIN ASA ALLOPURINOL
== END ==
PROVIDERS: PCP Internal Medicine; Visit Provider Urology
DX: R07.9 Chest pain, unspecified; R07.89 Other chest pain; R06.02 Shortness of breath; R94.31 Abnormal electrocardiogram [ECG] [EKG]; E78.2 Mixed hyperlipidemia; I27.20 Pulmonary hypertension, unspecified; I50.32 Chronic diastolic (congestive) heart failure; I51.89 Other ill-defined heart diseases; Z82.49 Family history of ischemic heart disease and other diseases of the circulatory system; Z95.0 Presence of cardiac pacemaker
CPT/HCPCS: 78452; 93017; A9502; J2785

== ENCOUNTER → 2020-07-11 14:14 | Outpatient (CLI) | payer MEDICARE, SELFPAY ==
--- NOTE | 2020-07-11 14:17 | CA_ITS ---
APPROVED REPORT EXAM: Comprehensive 2D, Doppler, and color-flow Echocardiogram Apprentice Cook: Noy Hammer RVT Ht: 5 ft 8 in Wt: 223lbs BSA: 2.14 BP: 122/76 mmHg Indications: LV DYSFUNCTION,CP,HTN,HLD,SOA,PACER,CAD,CHF 2D Dimensions LVOT 2.48 cm (M/F) 1.5-2.5 M-Mode Dimensions RVDd 2.41 cm (0.9-2.6) LVDd 5.72 cm (3.5-5.7) LVDs 3.90 cm (3.5-5.7) IVSd 0.68 cm (0.6-1.1) PWd 0.56 cm (0.6-1.1) EF (Teich) 59.10% FS 31.80% EDV (Teich) 161.30 mL ESV (Teich) 65.90 mL LV Diastology E/A Ratio 1.20 Mitral Valve MV A Velocity 89.00 (40-130 cm/s) Left Ventricle Remains mildly enlarged, left ventricle is normal size, mild concentric left ventricular hypertrophy, visually estimated ejection fraction 50% with no regional wall motion abnormality, there is abnormal septal motion, diastolic parameters are inconclusive. Right Ventricle Right atrium and right ventricular normal size and contractility, there is a pacemaker lead seen right atrium and right ventricle. Aortic Valve Aortic valve is minimally thickened and fibrosed, there is no aortic stenosis or aortic insufficiency. Mitral Valve Mitral valve is grossly normal, there is mild mitral regurgitation. Tricuspid Valve Tricuspid valve is grossly normal, there is mild tricuspid regurgitation, tricuspid regurgitation jet velocity is inadequate for calculation of the right ventricular systolic pressure. Pulmonic Valve Pulmonic valve is poorly visualized. Great Vessels Aortic root is normal size. Pericardium Trivial pericardial effusion noted. Conclusion 1. Normal left ventricular size, mild concentric left ventricular hypertrophy, visually estimated ejection fraction 50% with no regional wall motion abnormality, diastolic parameters are inconclusive. 2. Mild mitral and tricuspid regurgitation 3. Trivial pericardial effusion noted. Electronically signed by : Henry Martinez, 07/12/2020 15:51:31
== END ==
PROVIDERS: PCP Internal Medicine; Visit Provider Physician Assistant
DX: R07.89 Other chest pain (principal)
CPT/HCPCS: 93306

== ENCOUNTER → 2020-07-24 09:38 | Outpatient (CLI) | payer MEDICARE, SELFPAY ==
[2020-07-24 10:36] LABS: Basophils % 0.5 % (0.1-2.0); Eosinophils # 0.2 K/mm3 (0.0-0.4); Eosinophils % 3.4 % (0.1-12.0); Hematocrit 41.6 % (42.0-52.0); Hemoglobin 13.2 g/dL (14.1-18.0); Lymphocytes # 1.6 K/mm3 (0.7-4.5); Lymphocytes % 27.4 % (10-50); Mean Corpuscular HGB Conc 31.7 g/dL (31.8-35.4); Mean Corpuscular Hemoglobin 29.1 pg (27.0-31.2); Mean Corpuscular Volume 91.5 fl (80-94); Mean Platelet Volume 7.6 fl (7.4-10.4); Monocytes # 0.2 K/mm3 (0.1-1.0); Monocytes % 4.1 % (1.7-9.3); Neutrophils # 3.7 K/mm3 (1.8-7.8); Neutrophils % 64.7 % (37.0-80.0); Platelet Count 229 K/mm3 (142-424); Red Blood Count 4.54 M/mm3 (4.60-6.20); White Blood Count 5.7 K/mm3 (4.8-10.8)
[2020-07-24 10:37] LABS: Hemoglobin A1C 7.1 % (4.0-6.0)
[2020-07-24 11:45] LABS: Alanine Aminotransferase 31 U/L (12-78); Albumin Level 4.6 g/dl (3.5-5.0); Albumin/Globulin Ratio 1.8 (1.1-1.8); Alkaline Phosphatase 46 U/L (38-126); Anion Gap 11.7 mEq/L (5-15); Aspartate Amino Transferase 27 U/L (17-59); Bilirubin,Total 1.3 mg/dl (0.2-1.3); Blood Urea Nitrogen 20 mg/dl (9-20); Calcium 9.6 mg/dl (8.4-10.2); Carbon Dioxide 33 mmol/L (22.0-30.0); Chloride 102 mmol/L (98-107); Chol/HDL Ratio 3.8 (1-3.5); Cholesterol 121 mg/dl (140-200); Estimated Glomerular Filt Rate 64 ml/min (>60); GFR (African American) 77 ML/MIN (>60); Globulin 2.6 g/dL (1.3-3.2); Glucose 126 mg/dl (74-100); HDL Cholesterol 32 mg/dl (40-60); Potassium 4.7 mmoL/L (3.5-5.1); Sodium 142 mmol/L (136-145); Total Protein,Serum 7.2 g/dl (6.3-8.2); Triglycerides 365 mg/dl (30-150); Uric Acid 7.5 mg/dl (3.5-8.5); VLDL Cholesterol 73 mg/dL (0-40)
[2020-07-24 11:56] LABS: Direct LDL Cholesterol 33.04 mg/dL (100-129)
[2020-07-24 12:15] LABS: Prostate Specific Ag, Diagnost 1.25 ng/ml (0.0-4.0)
[2020-07-24 13:43] LABS: Creatinine,Urine Random 142 mg/dL (Not Estab.)
== END ==
PROVIDERS: Visit Provider Internal Medicine
DX: E11.42 Type 2 diabetes mellitus with diabetic polyneuropathy (principal); I10 Essential (primary) hypertension; E78.5 Hyperlipidemia, unspecified; M10.9 Gout, unspecified; N40.1 Benign prostatic hyperplasia with lower urinary tract symptoms; Z79.84 Long term (current) use of oral hypoglycemic drugs
CPT/HCPCS: 36415; 80053; 80061; 82043; 82570; 83036; 84153; 84550; 85025

== ENCOUNTER → 2020-08-08 09:26 | Outpatient (CLI) | payer MEDICARE, SELFPAY | PROVIDERS: PCP Internal Medicine; Visit Provider Internal Medicine Pulmonary Disease | DX: R06.00 Dyspnea, unspecified (principal) | CPT/HCPCS: 94060; 94618; 94726; 94729 ==

== ENCOUNTER → 2021-01-28 09:43 | Outpatient (CLI) | payer MEDICARE, SELFPAY ==
--- NOTE | 2021-01-28 09:48 | XR_ITS ---
PROCEDURE: XR LUMBAR SPINE MIN 4V CLINICAL INDICATION: LUMBAGO W/ L SCIATICA COMPARISON: CT CT ABDOMEN PELVIS WO CON from 07/26/2019 FINDINGS: No fracture or dislocation. No lytic or blastic change. There is normal mineralization. Minimal lumbar curvature convex left. There is very slight decrease in the L2-L3 disc space which may represent some mild early degenerative change. On the right posterior oblique view there is some minimal sclerosis along the endplate inferiorly at L2. Small endplate osteophytes are present at L4 and L3. Other findings:Mild degenerative disc disease at T12-L1 IMPRESSION: Mild degenerative changes. Dictated by: Gil Carrillo MD 01/28/2021 10:53 Gil Carrillo MD in [facility] 01/28/2021 10:53
== END ==
PROVIDERS: PCP Internal Medicine; Visit Provider Internal Medicine
DX: M54.42 Lumbago with sciatica, left side (principal)
CPT/HCPCS: 72110

== ENCOUNTER 2021-02-20 11:00 | Outpatient (RCR) | payer MEDICARE, SELFPAY ==
--- NOTE | 2021-02-05 11:28 | HMH.PTOPEV ---
PT Outpatient Evaluation Rehab PT Outpatient Evaluation Start: 02/05/21 11:11 Freq: Status: Active Protocol: Document 02/05/21 11:11 FARZAD (Rec: 02/05/21 11:27 DORISASHA [id number]) Electronically Signed By González Valenzuela, PT 02/05/21 11:11 Outpatient Therapy Subjective History Subjective History Patient is a 50 year old male presenting to outpatient PT with reports of sub-acute LBP with LLE radicular symptoms to L foot intermittently. Symptoms of insidious onset. Most recent imaging indicates mild DDD. Special tests indicate R ant/L post rotation of the innominant. Comorbidities include hx of HTN, diabetes, pacemaker and cardioMEMS procedure. Chief Complaint Pain,Stiff,Paresthesia Symptom Type Sharp,Shooting Symptoms Relieved By Rest/Positioning Symptoms Aggravated By Standing Prior Functional Limitations None Current Functional Limitations Standing,Walking Symptom Description Intermittent Level of pain today (0-10) 2 Pain scale - at its best (0-10) 0 Pain scale - at its worst (0-10) 7 Lumbopelvic Eval Posture Thoracic Spine Posture Standing Position Neutral Lumbar Spine Posture Standing Position Neutral Accessory Movement L5 left S1 left Range of Motion Lumbar Spine Active Flexion Range of 65 Motion (degrees) Lumbar Spine Active Extension Range of 14 Motion (degrees) Left Lumbar Spine Lateral Flexion Active 18 Range of Motion (degrees) Right Lumbar Spine Lateral Flexion 16 Active Range of Motion (degrees) Lumbar Spine ROM Limitations Soft Tissue Tightness,Bony Restriction Manual Muscle Test Left Knee Extension Strength Grade 4 Good Knee Flexion Strength Grade 4 Good Hip Flexion Strength Grade 4 Good Extensor Hallucis Longus Strength Grade 4 Good Ankle Dorsiflexion Strength Grade 4 Good Gastronemius/Soleus Strength Grade 4 Good Right Knee Extension Strength Grade 5 Normal Knee Flexion Strength Grade 5 Normal Hip Flexion Strength Grade 5 Normal Extensor Hallucis Longus Strength Grade 5 Normal Ankle Dorsiflexion Strength Grade 5 Normal Gastronemius/Soleus Strength Grade 5 Normal DTR Rt Patellar 2+ Lt Patellar 1+ Rt Gastroc/Soleus 2+ Lt Gastroc/Soleus 1+ Altered Sensation Left
== END 2021-02-20 11:05 | disposition home or self-care (01) ==
LOC: PT 11:00
PROVIDERS: PCP Internal Medicine; Visit Provider Internal Medicine
DX: M54.5 Low back pain (principal); M54.32 Sciatica, left side
CPT/HCPCS: 97010; 97012; 97014; 97110; 97163; G0283

== ENCOUNTER → 2021-06-03 16:32 | Outpatient (CLI) | payer MEDICARE, SELFPAY ==
[2021-06-03 16:54] LABS: Basophils % 0.7 % (0.1-2.0); Eosinophils # 0.2 K/mm3 (0.0-0.4); Eosinophils % 3.9 % (0.1-12.0); Hematocrit 39.9 % (42.0-52.0); Hemoglobin 13.7 g/dL (14.1-18.0); Lymphocytes % 35.2 % (10-50); Mean Corpuscular HGB Conc 34.3 g/dL (31.8-35.4); Mean Corpuscular Hemoglobin 30.1 pg (27.0-31.2); Mean Corpuscular Volume 87.8 fl (80-94); Mean Platelet Volume 9.3 fl (7.4-10.4); Monocytes # 0.2 K/mm3 (0.1-1.0); Monocytes % 3.4 % (1.7-9.3); Neutrophils # 3.2 K/mm3 (1.8-7.8); Neutrophils % 56.9 % (37.0-80.0); Platelet Count 225 K/mm3 (142-424); Red Blood Count 4.54 M/mm3 (4.60-6.20); Red Cell Distribution Width 14.8 % (11.5-17.5); White Blood Count 5.6 K/mm3 (4.8-10.8)
[2021-06-03 19:23] LABS: Anion Gap 14.1 mEq/L (5-15); Blood Urea Nitrogen 16 mg/dl (9-20); Calcium 9.1 mg/dl (8.4-10.2); Carbon Dioxide 29 mmol/L (22.0-30.0); Chloride 103 mmol/L (98-107); Estimated Glomerular Filt Rate 78 ml/min (>60); GFR (African American) 95 ML/MIN (>60); Glucose 128 mg/dl (74-100); Potassium 4.1 mmoL/L (3.5-5.1); Sodium 142 mmol/L (136-145)
== END ==
PROVIDERS: Visit Provider Physician Assistant
DX: Z45.010 Encounter for checking and testing of cardiac pacemaker pulse generator [battery] (principal); R07.89 Other chest pain
CPT/HCPCS: 36415; 80048; 85025; U0003

== ENCOUNTER 2021-06-05 08:45 | Day surgery (SDC) | payer MEDICARE, SELFPAY ==
[2021-06-05] VITALS (7 sets, daily range): BP systolic 98–137; BP diastolic 44–100; PULSE 60–100; RESP 18; TEMP 36.6–37.1; O2SAT 97–100; BMI 33.0
--- NOTE | 2021-06-05 | IR_ITS ---
APPROVED REPORT Patient Location: Outpatient Research Editor: JAKE Martínez RT (R) PROCEDURES Pocket Revision Removal of old Pacemaker Implant of Permanent Pacemaker INDICATION Sinus Bradycardia, End of battery life Informed consent was obtained prior to the procedure. COMPLICATIONS None Estimated Blood Loss: Less than 10 mls TECHNIQUE 1% lidocaine with epinephrine used to anesthetize the left anterior aspect of the chest. Scalpel was used to make the initial cutaneous incision and then used to dissect down to the existing pacemaker generator. The generator was removed from the existing pocket. Digital manipulation was required along with intermittent usage of scalpel in order to revise the pocket. The leads were removed from the old generator. The new generator was screwed to the existing leads and secured into place. Electronic interrogation proved acceptable thresholds and voltage within the lead. Antibiotics were used to flush the pocket and the pacemaker was secured using 3-0 silk into the newly revised pocket. Monocryl was used to close the subcutaneous tissue and then helga were placed on the cutaneous area in order to approximate the incision. Patient was transferred to the postop holding area in stable condition. INTERROGATION Explanted Generator Model number: [employer], 2160 Explanted Generator Serial number: [id number] Implanted Generator Model number: [employer] [address], L311 Implanted Generator Serial number: [id number] Atrial lead model number: Tendril ST, 1882 TC Atrial lead serial number: [id number] P-wave: 8.0mV Impedence: 427 ohms Threshold: 2.2V@1.0ms Right Ventricular lead model number: Tendril SDX, 1688 TC Right Ventricular lead serial number: [id number] R-wave: 15.0mV Impedence: 622 ohms Threshold: 2.2V@1.0ms Pacing Parameters: Mode: DDDR Base/Max Track: 60/130 ppm No diaphragmatic stimulation at 10 volts. IMPRESSION Successful Pocket Revision Successful Removal of old Pacemaker Successful Implant of Permanent Pacemaker PLAN 1. Post op wound care, follow up office visit Electronically signed by : Hermes Clifton MD 06/10/2021 12:58:34
--- NOTE | 2021-06-05 09:28 | HMH.ANESCL ---
[facility] Anesthesia Checklist - Patient Identification Patient Identification: Arm Band - Structural Data Admitted From: Home Planned Operative Procedure/s: Battery change Consent for Planned Operative Procedure(s) Verified: Yes - NPO Status Verified Time NPO: 00:00 - Airway Assessment C-Spine Mobility Assessed: Yes TMJ Mobility Assessed: Yes Dentition: Partials - Neurological Assessment Level of Consciousness: Awake Hx Seizures: No Numbness or tingling in extremities: No - Anesthesia Plan Anesthesia Risk discussed: Yes Anesthesia Plan: Verified ASA Class: III Anesthesia Type: MAC [facility] History I have reviewed the patient's past medical history: Yes Medical History: Reports:: Anxiety, Congestive Heart Failure, Coronary Artery Disease, Diabetes Mellitus Type 2, Hyperlipidemia, Hypertension, Internal Pacemaker, Palpitations Denies:: Seizures *Have you ever received a pneumonia vaccine?: No *Have you received a flu vaccine this season?: Yes Anesthesia experience/problems:: None Other Surgeries: Yes: Angioplasty, Cardiac Catheterization, Hernia Repair, Pacemaker, Other - *Social History Smoking Status: Never smoker Tobacco Type: smokeless tobacco Alcohol Intake: never Alcohol Intake Frequency:: other Substance Use Type: denies use *Occupational Status:: employed Household Members: spouse *Travel in the last 8 weeks: None - Psychiatric History Pschychiatric History:: Reports:: Anxiety Family Hx:: Hypertension, Cancer, Coronary Artery Disease, Diabetes, Heart Attack
== END 2021-06-05 11:41 | disposition home or self-care (01) ==
LOC: CATHLAB 08:46
PROVIDERS: PCP Internal Medicine; Visit Provider Internal Medicine
DX: Z45.010 Encounter for checking and testing of cardiac pacemaker pulse generator [battery] (principal); I50.32 Chronic diastolic (congestive) heart failure; I27.20 Pulmonary hypertension, unspecified; E11.9 Type 2 diabetes mellitus without complications; I11.0 Hypertensive heart disease with heart failure; Z79.899 Other long term (current) drug therapy; Z79.84 Long term (current) use of oral hypoglycemic drugs
CPT/HCPCS: 33228; C1785; J2704

== ENCOUNTER → 2021-06-17 09:43 | Outpatient (CLI) | payer MEDICARE, SELFPAY ==
--- NOTE | 2021-06-17 09:55 | XR_ITS ---
PROCEDURE: XR CHEST 2V CLINICAL HISTORY: Chest soreness post op PPM battery change COMPARISON: CR CXR CHEST(2 VIEWS-NOT PORTABLE) from 03/27/2015 CR CXR CHEST(2 VIEWS-NOT PORTABLE) from 07/04/[address] CHEST WO CON from 03/15/2020 CR XR CHEST PORTABLE from 06/30/2020 FINDINGS: The cardiomediastinal silhouette and pulmonary vascularity are within normal limits. Bipolar pacemaker is present from left subclavian approach. A new battery pack/generator is present compared to 06/30/2020. A small metallic density overlies the left infrahilar region. Lungs are clear bilaterally. No acute bony abnormalities. IMPRESSION: No acute findings. Dictated by: Gil Carrillo MD 06/17/2021 10:21 Gil Carrillo MD in [facility] 06/17/2021 10:21
== END ==
PROVIDERS: PCP Internal Medicine; Visit Provider Urology
DX: E78.2 Mixed hyperlipidemia (principal); I25.10 Atherosclerotic heart disease of native coronary artery without angina pectoris; I27.20 Pulmonary hypertension, unspecified; I50.30 Unspecified diastolic (congestive) heart failure; I50.32 Chronic diastolic (congestive) heart failure; R06.02 Shortness of breath; Z95.0 Presence of cardiac pacemaker
CPT/HCPCS: 71046

== ENCOUNTER → 2021-07-18 14:54 | Outpatient (CLI) | payer MEDICARE, SELFPAY ==
--- NOTE | 2021-07-18 14:57 | XR_ITS ---
PROCEDURE: XR CHEST 2V CLINICAL HISTORY: pacemaker COMPARISON: No exams were available for comparison FINDINGS: Bipolar pacemaker is present from the left subclavian approach. There is a small metallic device over the posterior aspect of the heart in the left hilar region. Normal heart size. The lungs are clear without infiltrates, suspicious nodules, or pleural effusions. No acute bony abnormalities. IMPRESSION: No acute findings. Dictated by: Gil Carrillo MD 07/18/2021 15:28 Gil Carrillo MD in [facility] 07/18/2021 15:28
== END ==
PROVIDERS: PCP Internal Medicine; Visit Provider Nurse Practitioner Family
DX: Z95.0 Presence of cardiac pacemaker (principal)
CPT/HCPCS: 71046

== ENCOUNTER → 2021-08-06 10:45 | Outpatient (CLI) | payer MEDICARE, SELFPAY ==
[2021-08-06 11:09] LABS: Basophils % 0.6 % (0.1-2.0); Eosinophils # 0.2 K/mm3 (0.0-0.4); Eosinophils % 3.1 % (0.1-12.0); Hematocrit 41.4 % (42.0-52.0); Hemoglobin 13.7 g/dL (14.1-18.0); Lymphocytes # 1.9 K/mm3 (0.7-4.5); Lymphocytes % 31.6 % (10-50); Mean Corpuscular HGB Conc 33.2 g/dL (31.8-35.4); Mean Corpuscular Hemoglobin 30.2 pg (27.0-31.2); Mean Corpuscular Volume 90.9 fl (80-94); Mean Platelet Volume 8.8 fl (7.4-10.4); Monocytes # 0.3 K/mm3 (0.1-1.0); Monocytes % 4.6 % (1.7-9.3); Neutrophils # 3.7 K/mm3 (1.8-7.8); Neutrophils % 60.2 % (37.0-80.0); Platelet Count 278 K/mm3 (142-424); Red Blood Count 4.55 M/mm3 (4.60-6.20); Red Cell Distribution Width 14.6 % (11.5-17.5); White Blood Count 6.1 K/mm3 (4.8-10.8)
[2021-08-06 11:51] LABS: Alanine Aminotransferase 29 U/L (12-78); Albumin Level 4.3 g/dl (3.5-5.0); Albumin/Globulin Ratio 1.7 (1.1-1.8); Alkaline Phosphatase 47 U/L (38-126); Anion Gap 13.3 mEq/L (5-15); Aspartate Amino Transferase 27 U/L (17-59); Bilirubin,Total 2.2 mg/dl (0.2-1.3); Blood Urea Nitrogen 17 mg/dl (9-20); Calcium 9.5 mg/dl (8.4-10.2); Carbon Dioxide 29 mmol/L (22.0-30.0); Chloride 101 mmol/L (98-107); Chol/HDL Ratio 3.4 (1-3.5); Cholesterol 117 mg/dl (140-200); Estimated Glomerular Filt Rate 78 ml/min (>60); GFR (African American) 95 ML/MIN (>60); Globulin 2.6 g/dL (1.3-3.2); Glucose 119 mg/dl (74-100); HDL Cholesterol 34 mg/dl (40-60); Potassium 4.3 mmoL/L (3.5-5.1); Sodium 139 mmol/L (136-145); Total Protein,Serum 6.9 g/dl (6.3-8.2); Triglycerides 316 mg/dl (30-150); Uric Acid 4.5 mg/dl (3.5-8.5); VLDL Cholesterol 63 mg/dL (0-40)
[2021-08-06 12:02] LABS: Direct LDL Cholesterol 31.36 mg/dL (100-129)
[2021-08-06 12:21] LABS: Prostate Specific Ag Screen 1.5 ng/ml (0.0-4.0)
== END ==
PROVIDERS: Visit Provider Internal Medicine
DX: E11.42 Type 2 diabetes mellitus with diabetic polyneuropathy (principal); I10 Essential (primary) hypertension; M10.9 Gout, unspecified; E78.5 Hyperlipidemia, unspecified; Z95.0 Presence of cardiac pacemaker; Z12.5 Encounter for screening for malignant neoplasm of prostate; Z79.84 Long term (current) use of oral hypoglycemic drugs
CPT/HCPCS: 36415; 80053; 80061; 84550; 85025; G0103

== ENCOUNTER → 2021-09-26 09:02 | Outpatient (CLI) | payer MEDICARE, SELFPAY ==
[2021-09-26 10:07] LABS: Anion Gap 12.2 mEq/L (5-15); Blood Urea Nitrogen 23 mg/dl (9-20); Calcium 9.5 mg/dl (8.4-10.2); Carbon Dioxide 30 mmol/L (22.0-30.0); Chloride 101 mmol/L (98-107); Estimated Glomerular Filt Rate 63 ml/min (>60); GFR (African American) 77 ML/MIN (>60); Glucose 140 mg/dl (74-100); Magnesium 1.7 mg/dl (1.6-2.3); Potassium 4.2 mmoL/L (3.5-5.1); Sodium 139 mmol/L (136-145)
[2021-09-26 10:20] LABS: Intact Parathyroid Hormone 121.4 pg/mL (7.5-53.5); Triiodothryronine (T3) Uptake 32 % (23.5-40.5)
[2021-09-26 10:21] LABS: Free Thyroxine Index 1.9 ug/dL (5.93-13.13); T4 (Thyroxine) 5.8 ug/dl (5.53-11.0)
[2021-09-26 10:35] LABS: Thyroid Stimulating Hormone 2.09 uIU/mL (0.465-4.68)
== END ==
PROVIDERS: Visit Provider Physician Assistant
DX: R00.2 Palpitations (principal); R25.2 Cramp and spasm; Z51.81 Encounter for therapeutic drug level monitoring; Z79.899 Other long term (current) drug therapy
CPT/HCPCS: 36415; 80048; 83735; 83970; 84436; 84443; 84479

== ENCOUNTER → 2021-10-01 13:37 | Outpatient (CLI) | payer MEDICARE, SELFPAY ==
--- NOTE | 2021-10-01 13:38 | US_ITS ---
PROCEDURE: US THYROID CLINICAL INDICATION: abnormal thyroid COMPARISON: No exams were available for comparison FINDINGS: Right lobe: 4 x 1.7 x 2.5 cm. There is a slightly hypoechoic solid appearing 9 x 8 mm nodule in the mid aspect of the right lobe. The margins are somewhat irregular. Nodule is slightly wider than tall. TR level 5. No obvious calcification Left lobe: 3.9 x 1.6 x 1.9 cm. No nodules evident. Isthmus: Mildly prominent at 5 mm Additional findings: IMPRESSION: TR level 5, highly suspicious right thyroid nodule. Recommend ultrasound-guided FNA. Dictated by: Gil Carrillo MD 10/01/2021 17:13 Gil Carrillo MD in [facility] 10/01/2021 17:13
== END ==
PROVIDERS: PCP Internal Medicine; Visit Provider Physician Assistant
DX: E78.5 Hyperlipidemia, unspecified (principal); I25.10 Atherosclerotic heart disease of native coronary artery without angina pectoris; I27.20 Pulmonary hypertension, unspecified; I50.30 Unspecified diastolic (congestive) heart failure; R06.00 Dyspnea, unspecified; Z95.0 Presence of cardiac pacemaker; R94.6 Abnormal results of thyroid function studies
CPT/HCPCS: 76536

== ENCOUNTER → 2021-10-14 08:58 | Outpatient (CLI) | payer MEDICARE, SELFPAY ==
--- NOTE | 2021-10-14 08:58 | US_ITS ---
PROCEDURE: US FNA THYROID CLINICAL INDICATION: Suspicious right thyroid nodule COMPARISON: US US THYROID from 10/01/2021 TECHNIQUE: Following obtaining informed consent, using aseptic technique and local anesthesia with buffered lidocaine, fine-needle aspiration was performed of the nodule of interest within the right thyroid gland using sonographic guidance. 3 passes were made into the nodule with a 25-gauge needle. Specimen was given to cytology. The patient tolerated the procedure well without evidence of immediate complications and left the ultrasound suite in stable condition. FINDINGS: CYTOLOGY: Benign follicular nodule, negative for malignant cells IMPRESSION: Uneventful and successful ultrasound-guided FNA of the right thyroid nodule showing benign findings. Dictated by: Gil Carrillo MD 10/16/2021 13:12 Gil Carrillo MD in [facility] 10/16/2021 13:12
== END ==
PROVIDERS: PCP Internal Medicine; Visit Provider Physician Assistant
DX: E04.1 Nontoxic single thyroid nodule (principal)
CPT/HCPCS: 10005; 88173

== ENCOUNTER → 2022-01-20 12:56 | Outpatient (CLI) | payer MEDICARE, SELFPAY ==
[2022-01-20 16:37] LABS: Alanine Aminotransferase 41 U/L (12-78); Albumin Level 4.5 g/dl (3.5-5.0); Alkaline Phosphatase 46 U/L (38-126); Anion Gap 15.2 mEq/L (5-15); Aspartate Amino Transferase 37 U/L (17-59); Bilirubin,Total 1.6 mg/dl (0.2-1.3); Blood Urea Nitrogen 17 mg/dl (9-20); Calcium 9.2 mg/dl (8.4-10.2); Carbon Dioxide 28 mmol/L (22.0-30.0); Chloride 100 mmol/L (98-107); Chol/HDL Ratio 3.6 (1-3.5); Cholesterol 113 mg/dl (140-200); Estimated Glomerular Filt Rate 70 ml/min (>60); GFR (African American) 85 ML/MIN (>60); Globulin 2.2 g/dL (1.3-3.2); Glucose 193 mg/dl (74-100); HDL Cholesterol 31 mg/dl (40-60); Potassium 4.2 mmoL/L (3.5-5.1); Sodium 139 mmol/L (136-145); Total Protein,Serum 6.7 g/dl (6.3-8.2); Triglycerides 275 mg/dl (30-150); Uric Acid 4.4 mg/dl (3.5-8.5); VLDL Cholesterol 55 mg/dL (0-40)
[2022-01-20 16:57] LABS: Direct LDL Cholesterol < 30.00 mg/dL (100-129)
[2022-01-20 17:15] LABS: Hemoglobin A1C 7.1 % (4.0-6.0)
== END ==
PROVIDERS: Visit Provider Internal Medicine
DX: E11.49 Type 2 diabetes mellitus with other diabetic neurological complication (principal); I10 Essential (primary) hypertension; E78.5 Hyperlipidemia, unspecified; M10.9 Gout, unspecified; Z95.0 Presence of cardiac pacemaker; Z79.84 Long term (current) use of oral hypoglycemic drugs
CPT/HCPCS: 80053; 80061; 83036; 84550

== ENCOUNTER → 2022-02-03 07:31 | Outpatient (CLI) | payer MEDICARE, SELFPAY ==
--- NOTE | 2022-02-03 07:51 | ECG_ITS ---
APPROVED REPORT Exam: Resting ECG HR:72 bpm ECG Measurements Heart Rate 72 AXES WA 243 P 195 QRSd 104 QRS 2 QT 384 T 5 QTc 408 Conclusion ELECTRONIC ATRIAL PACEMAKER NONSPECIFIC T-WAVE ABNORMALITY ABNORMAL RHYTHM ECG UNCONFIRMED REPORT Electronically signed by : Carlos Enrique Cooper MD 02/03/2022 15:57:48
[2022-02-03 07:57] LABS: Basophils # 0.1 K/mm3 (0-0.2); Basophils % 1.6 % (0.1-2.0); Eosinophils # 0.2 K/mm3 (0.0-0.4); Hematocrit 41.7 % (42.0-52.0); Hemoglobin 13.5 g/dL (14.1-18.0); Lymphocytes # 1.7 K/mm3 (0.7-4.5); Mean Corpuscular HGB Conc 32.4 g/dL (31.8-35.4); Mean Corpuscular Hemoglobin 30.2 pg (27.0-31.2); Mean Platelet Volume 9.3 fl (7.4-10.4); Monocytes # 0.2 K/mm3 (0.1-1.0); Monocytes % 3.9 % (1.7-9.3); Neutrophils # 3.5 K/mm3 (1.8-7.8); Neutrophils % 61.5 % (37.0-80.0); Platelet Count 246 K/mm3 (142-424); Red Blood Count 4.49 M/mm3 (4.60-6.20); Red Cell Distribution Width 14.9 % (11.5-17.5); White Blood Count 5.7 K/mm3 (4.8-10.8)
[2022-02-03 08:47] LABS: Chloride 99 mmol/L (98-107); Sodium 137 mmol/L (136-145)
[2022-02-03 08:50] LABS: Blood Urea Nitrogen 18 mg/dl (9-20); Calcium 8.7 mg/dl (8.4-10.2); Carbon Dioxide 30 mmol/L (22.0-30.0); Estimated Glomerular Filt Rate 63 ml/min (>60); GFR (African American) 77 ML/MIN (>60); Glucose 199 mg/dl (74-100)
== END ==
PROVIDERS: Visit Provider Otolaryngology
DX: Z01.818 Encounter for other preprocedural examination (principal); Z11.52 Encounter for screening for COVID-19; E04.1 Nontoxic single thyroid nodule
CPT/HCPCS: 36415; 80048; 85025; 93005; C9803; U0003; U0005

== ENCOUNTER 2022-02-05 06:46 | Day surgery (SDC) | payer MEDICARE, SELFPAY ==
[2022-02-03 09:14] VITALS: BMI 32.5
[2022-02-05] VITALS (14 sets, daily range): BP systolic 105–151; BP diastolic 58–91; PULSE 70–78; RESP 14–18; TEMP 36.1–38; O2SAT 94–97
--- NOTE | 2022-02-05 08:05 | SUR.PREOP ---
PT ASSISTED TO BATHROOM AND BACK TO BED. AT BEDSIDE. NO NEEDS OR CONCERNS VOICED.
--- NOTE | 2022-02-05 08:21 | P.PN_ITS ---
[facility] Anesthesia Checklist - Patient Identification Patient Identification: Arm Band, Verbal (Name & ) - Structural Data Admitted From: Home Planned Operative Procedure/s: Partial Thyroidectomy Consent for Planned Operative Procedure(s) Verified: Yes Verified Documents: Surgical Consent - NPO Status Verified Time NPO: 00:00 - Chart Verification Results Verified: CBC, BMP - Additional verifications Anesthesia Reactions: No Hx Blood Transfusions: No Blood Transfusion Reaction: No - Airway Assessment C-Spine Mobility Assessed: Yes TMJ Mobility Assessed: Yes - Neurological Assessment Level of Consciousness: Awake, Alert, Appropriate - Anesthesia Plan Anesthesia Risk discussed: Yes ASA Class: III Anesthesia Type: General [facility] History Medical History: Reports:: Anxiety, Congestive Heart Failure, Coronary Artery Disease, Diabetes Mellitus Type 2, Hyperlipidemia, Hypertension, Internal Pacemaker, 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), Palpitations Denies:: Cancer, Seizures *Have you ever received a pneumonia vaccine?: Yes *Have you received a flu vaccine this season?: Yes Other Medical History: Denies: Blood Transfusion Reaction Anesthesia experience/problems:: no issues Laterality Cases: Right: Arthroscopy Knee, Bilateral: Carpal Tunnel Release Other Surgeries: Yes: Angioplasty, Cardiac Catheterization, Hernia Repair, Pacemaker, Other Amputation: No - *Social History Last grade of school completed: 9th or 10th Smoking Status: Never smoker Tobacco Type: smokeless tobacco Alcohol Intake: never Alcohol Intake Frequency:: other Substance Use Type: denies use *Occupational Status:: disabled Household Members: spouse *Travel in the last 8 weeks: None - Psychiatric History Pschychiatric History:: Reports:: Anxiety Family Hx:: Hypertension, Cancer, Coronary Artery Disease, Diabetes, Heart Attack
--- NOTE | 2022-02-05 09:35 | SUR.PREOP ---
PT RESTING IN BED WATCHING TV. NO NEEDS OR CONCERNS VOICED. AT BEDSIDE.
--- NOTE | 2022-02-05 11:50 | HMH.OPNOTE ---
Date of procedure: 02/05/22 Pre-op Diagnosis:: Right thyroid nodule Post-op Diagnosis:: Right thyroid nodule Procedure performed:: Right thyroid lobectomy and isthmusectomy with intraoperative monitoring of the recurrent laryngeal nerve Surgeon:: Sivakumar Morse MD MEDICAL RESEARCH ASSISTANT:: Other Anesthesia: GETA Estimated blood loss (mL): 25 Operative findings:: Small firm nodule within the right thyroid lobe and the surrounding thyroid tissue looks normal. Desmoplasia noted. Parathyroid glands were identified and preserved. Recurrent laryngeal nerve was identified and preserved. Operative note:: The patient was brought to the operating room and after adequate general anesthesia the neck was prepped and draped in the usual sterile fashion and 1% lidocaine with epinephrine used to locally infiltrate a skin crease overlying the palpable thyroid and then nerve integrity monitoring electrodes placed to monitor the recurrent laryngeal nerves. A skin incision was made and carried through the underlying platysma and subplatysmal flaps elevated superiorly and inferiorly and a self-retaining retractor applied the strap muscles were then divided at midline and retracted laterally. The thyroid isthmus was then elevated from the anterior tracheal wall and then divided and ligated with the harmonic scalpel. The anterior suspensory ligament was divided with the harmonic scalpel and then dissection performed around the capsule of the right thyroid lobe. The middle thyroid vein was identified isolated next to the gland capsule and then ligated and divided with the harmonic scalpel then attention drawn to the inferior pole. The numerous inferior pole and thyroid isthmus vascular perforators were individually isolated next to the capsule ligated and divided with harmonic scalpel. Attention was then drawn to the superior pole. The superior pole vascular pedicle was isolated next to the gland capsule and ligated and divided with a harmonic scalpel and then dissection was performed mobilizing the superior pole from the pounding soft tissue. Dissection was then performed along the undersurface of the right thyroid lobe the lobe from the underlying tracheoesophageal groove. The recurrent laryngeal nerve was identified in its usual location and confirmed with nerve stimulation. The inferior and superior parathyroid glands were identified and preserved along with the blood supply. The posterior suspensory ligament was then divided taking care to preserve the integrity of the nerve. The specimen was then sent for permanent section analysis. The wound was inspected and hemostasis seemed to be adequate. Closure was then performed by reapproximating the strap muscles and platysma and subcutaneous layers with 4-0 Vicryl and then the skin edges were reapproximated with 5-0 nylon and a sterile dressing placed and the procedure concluded. All counts were correct. Blood loss was less than 25 mL. Patient was sent recovery in same positions. Condition: stable Disposition: PACU Complications:: None
--- NOTE | 2022-02-05 11:59 | P.PN_ITS ---
[facility] Anesthesia Record Part I Intake, IV Amount: 800 Estimated blood loss (mL): 20 Urine output (mL): 0 Blood Pressure: 113/58 SaO2: 95 Pulse Rate: 70 Respiratory Rate: 14 Temperature: 97.1 F Patient is:: Drowsy Stable to PACU at:: 11:52
[2022-02-05 12:06] LABS: POC Glucose,Bedside 169 (70-110)
--- NOTE | 2022-02-05 12:41 | SUR.PHASEI ---
1139- detailed report given to satnam sawant in post op 1140- pt left in stable condition with satnam sawant and satnam kruger in post op at this time.
--- NOTE | 2022-02-06 07:34 | P.PN_ITS ---
[facility] Anesthesia Record Part II Discharge Time: 12:39 Destination: Surgical Day Care (OP Surgery) PACU nurse assessment reviewed?: Yes Patient Condition:: Good Anesthesia Complications:: None Swallowing reflex intact?: Yes Cyanosis?: No Blood Pressure: 137/90 Pulse Rate: 70 Temperature: 97 F Mental Status: Alert & Oriented Pain level:: 4 Nausea and/or vomitting:: None Intake, IV Amount: 0
[2022-02-06 07:35] VITALS: BP 137/90; PULSE 70; TEMP 36.1
[2022-07-24 10:59] LABS: POC Glucose,Bedside 159 (70-110)
== END 2022-02-05 13:10 | disposition home or self-care (01) ==
LOC: OR 06:47
PROVIDERS: PCP Internal Medicine; Visit Provider Otolaryngology
DX: E04.1 Nontoxic single thyroid nodule (principal); F41.9 Anxiety disorder, unspecified; I25.10 Atherosclerotic heart disease of native coronary artery without angina pectoris; E11.9 Type 2 diabetes mellitus without complications; E78.5 Hyperlipidemia, unspecified; I11.0 Hypertensive heart disease with heart failure; I50.9 Heart failure, unspecified; R00.2 Palpitations; Z95.0 Presence of cardiac pacemaker; Z83.3 Family history of diabetes mellitus; Z82.49 Family history of ischemic heart disease and other diseases of the circulatory system; Z80.9 Family history of malignant neoplasm, unspecified
CPT/HCPCS: 60225; 82962; 88307; 96374; J0330; J2405

== ENCOUNTER → 2022-02-14 12:29 | Outpatient (CLI) | payer MEDICARE, SELFPAY ==
--- NOTE | 2022-02-14 | CA_ITS ---
APPROVED REPORT EXAM: Comprehensive 2D, Doppler, and color-flow Echocardiogram Tea Bag Packer: Natalie Wooten RT(R) Ht: 5 ft 8 in Wt: 220lbs BSA: 2.13 BP: 127/86 mmHg Indications: SOB, HTN, DM, hyperlipidemia, CHF, CAD, pacemaker, thyroid CA 2D Dimensions LVOT 2.02 cm (M/F) 1.5-2.5 LVEF (Quintanilla's) 38.60 % M: 52 - 72 LV Volume 125.60 mL M: 62 - 150 LV Volume Index 58.96 mL/m2 M: 34 - 74 M-Mode Dimensions RVDd 2.12 cm (0.9-2.6) LA Diam 3.37 cm (1.9-4.0) LVDd 4.84 cm (3.5-5.7) Ao Diam 2.94 cm (2.0-3.7) LVDs 3.57 cm (3.5-5.7) IVSd 0.68 cm (0.6-1.1) PWd 0.93 cm (0.6-1.1) EF (Teich) 51.40% FS 26.20% EDV (Teich) 109.60 mL ESV (Teich) 53.30 mL LV Diastology E Decel Time 160.00 (160-240 msec) E/A Ratio 0.6 MED E' 4.90 (< 7 cm/sec) E'/MED E' Ratio 11.27 (>14) LAT E' 8.00 (<10 cm/sec) E/LAT E' Ratio 6.90 (>14) Mitral Valve MV E Max Chang. 55.00 (40-130 cm/s) MV A Velocity 87.00 (40-130 cm/s) E/A Ratio 0.63 MV Decel. Time 160.00 (160-240 ms) MV PHT 47.00 ms Left Ventricle Left atrium is mildly enlarged, left ventricle is normal size, mild concentric left ventricular hypertrophy, estimated ejection fraction 55% with no regional wall motion abnormality, grade 1 diastolic dysfunction seen without tissue Doppler evidence of raise left atrial pressure. Right Ventricle Right atrium and right ventricle are normal size and contractility, there is pacemaker leads in the right ventricle. Aortic Valve Aortic valve is minimally thickened and fibrosed there is no aortic stenosis or aortic insufficiency. Mitral Valve Mitral valve is grossly normal, there is trace mitral regurgitation. Tricuspid Valve Tricuspid grossly normal, there is trace tricuspid regurgitation, tricuspid regurgitation jet velocity is inadequate for calculation of the right ventricular systolic pressure. Pulmonic Valve Pulmonic valve is poorly visualized. Great Vessels Aortic root is normal size. Inferior vena cava normal size with normal inspiratory collapse. Pericardium No significant pericardial effusion noted. Conclusion 1. Mildly enlarged left atrium, normal left ventricular size, mild concentric left ventricular hypertrophy, estimated ejection fraction 55% with no regional wall motion abnormality, grade 1 diastolic dysfunction seen without tissue Doppler evidence of raise left atrial pressure. 2. Trace mitral and tricuspid regurgitation. 3. No significant pericardial effusion. 4. Inferior vena cava is normal size with normal spectral collapse. Electronically signed by : Henry Martinez MD 02/14/2022 15:25:18
== END ==
PROVIDERS: PCP Internal Medicine; Visit Provider Internal Medicine
DX: R06.02 Shortness of breath (principal)
CPT/HCPCS: 93306

== ENCOUNTER → 2022-02-21 08:24 | Outpatient (CLI) | payer MEDICARE, SELFPAY ==
--- NOTE | 2022-02-21 08:24 | US_ITS ---
FINAL REPORT CLINICAL HISTORY: .FNA LT SUPRACLAVICULAR NODE-- GREGORIA ADKINS FINDINGS: Ultrasound guided left supraclavicular lymph node HISTORY: Palpable left supraclavicular lymph node. PROCEDURE: After informed consent was obtained and a time-out was performed, the patient was prepped and draped in usual sterile fashion over the left supraclavicular region. Utilizing local anesthesia and sterile technique with a 25-gauge needle, access to the lesion was obtained. Four passes were made. The patient received no conscious sedation. The patient tolerated procedure well and left the department in good condition. IMPRESSION: Status post ultrasound guided biopsy of a left subclavicular lymph node without immediate complication. Reviewed, Interpreted and Dictated by Abner Lin MD Transcribed by LUCILLE Stallworth Authenticated by Abner Lin MD on 02/21/2022 11:16:50 AM [facility]
--- NOTE | 2022-02-21 08:24 | US_ITS ---
FINAL REPORT CLINICAL HISTORY: hx thyroid CA-- LT SUPRAQCLAVICULAR NODE FINDINGS: US SOFT TISSUE Limited sonographic images were obtained of the left supraclavicular region. At the area of interest is a hypoechoic 0.9 x 0.9 cm nodule that may represent a lymph node. IMPRESSION: Possible subcentimeter lymph node at the area of interest. If concern persists consider an infused neck CT. Reviewed, Interpreted and Dictated by Abner Lin MD Transcribed by Frankie Moore Authenticated by Abner Lin MD on 02/21/2022 11:04:31 AM [facility]
== END ==
PROVIDERS: PCP Internal Medicine; Visit Provider Otolaryngology
DX: R22.1 Localized swelling, mass and lump, neck
CPT/HCPCS: 10005; 76536; 88173

== ENCOUNTER → 2022-03-05 15:57 | Outpatient (CLI) | payer MEDICARE, SELFPAY ==
[2022-03-05 18:01] LABS: Thyroid Stimulating Hormone 2.95 uIU/mL (0.465-4.68)
== END ==
PROVIDERS: PCP Internal Medicine; Visit Provider Otolaryngology
DX: E04.1 Nontoxic single thyroid nodule (principal)
CPT/HCPCS: 36415; 84443

== ENCOUNTER 2022-07-04 13:45 | Emergency (ER) | payer MEDICARE, SELFPAY ==
[2022-07-04 14:51] VITALS: BP 138/77; PULSE 69; RESP 16; TEMP 36.8; O2SAT 97; BMI 32.6
--- NOTE | 2022-07-04 15:09 | EXP.UTC ---
Discharge Plan Disposition Patient Disposition: Home, Self-Care Condition: Good Prescriptions Prescriptions: New sulfamethoxazole-trimethoprim [Bactrim DS] 800-160 mg Tablet 1 tab PO Q12H Qty: 20 0RF mupirocin 2 % ointment 1 applic topical TID Qty: 22 0RF No Action metformin 1,000 mg tablet 1,000 mg PO BID spironolactone 25 mg tablet 25 mg PO DAILY PRN (Reason: chf) Qty: 120 3RF allopurinol 300 mg tablet 300 mg PO QDAY aspirin 325 mg tablet 325 mg PO QDAY fluoxetine 20 mg capsule 20 mg PO DAILY nitroglycerin 0.4 mg tablet, sublingual 0.4 mg SUBLINGUAL Q5M PRN (Reason: chest pain) Qty: 20 0RF Rx Instructions: do not exceed 3 doses per episode atorvastatin 20 mg tablet 20 mg PO HS Qty: 30 5RF bisoprolol fumarate 10 MG tablet 10 mg PO DAILY Rx Instructions: TAKE 1 TABLET BY MOUTH ONCE DAILY DIRECTED furosemide 40 MG tablet 40 mg PO DAILY methylcellulose (laxative) 500 MG tablet 2 tab PO DAILY empagliflozin 25 MG tablet 25 mg PO DAILY Referrals Follow up/Referrals: Haseeb Brewer MD [Primary Care Provider] - See instructions Activity Restrictions/Add. Instructions Additional Instructions/Restrictions: Take all medicine as prescribed until gone Follow up with Dr Brewer if not improving Watch for worsening pain or infection Clinical Impressions Clinical Impression: Paronychia of finger of left hand Instructions Patient Instructions: DI for Paronychia Discharge ED Provider: Kallie Loja [facility] [place] HPI General Stated complaint: AO 06/23/22 @Home LT thumb w/hammer; inflam LT Mid Mode of Arrival: Ambulatory Source of Information: Patient Limitations: No Limitations Time Seen by Provider: 07/04/22 15:48 Description of Symptoms (Recalled from Triage Doc. by RN): pt comes in with left thumb pain. pt smashed his thumb 06/23. pt also c/o left middle finger pain. pt has had no injury to that finger. it is swollen and red and painful. pt does have history of gout and mrsa. HEENT Symptoms (Recalled from RN notes): No Resp Symptoms (Recalled from RN notes): No Skin Symptoms (Recalled from RN notes): No MS Symptoms (Recalled from RN notes): Yes Functional Status (Recalled from RN notes): n/a History of Present Illness Provider Complaint: Pain and swelling of left finger X 3-4 days. Patient smashed his left thumb with a hammer 10 or so days ago, but it is healing well. No injury to left 3rd digit. History of MRSA. History of gout. Takes allopurinol. Distal end of finger is warm, very tender. Onset (ago): day(s) (4) Location: left and upper extremity Radiation: non-radiation Quality: crushing Consistency: constant Relieving factors: none Exacerbating factors: none Treatments prior to arrival: none Related Data Home Medications Medication Instructions Recorded Confirmed allopurinol 300 mg tablet 300 mg PO QDAY gout 11/16/17 06/03/22 aspirin 325 mg tablet 325 mg PO QDAY Heart disease 11/25/17 06/03/22 fluoxetine 20 mg capsule 20 mg PO DAILY Depression 05/28/20 06/03/22 metformin 1,000 mg tablet 1,000 mg PO BID Diabetes 12/24/21 06/03/22 bisoprolol fumarate 10 mg tablet 10 mg PO DAILY BP 02/03/22 06/03/22 empagliflozin 25 mg tablet 25 mg PO DAILY Diabetes 02/05/22 06/03/22 furosemide 40 mg tablet 40 mg PO DAILY Fluid 02/05/22 06/03/22 methylcellulose (laxative) 500 mg 2 tab PO DAILY Supplement 02/05/22 06/03/22 tablet Previous Rx's Medication Instructions Recorded nitroglycerin 0.4 mg sublingual 0.4 mg sublingual Q5M PRN chest 12/04/20 tablet pain #20 tabs atorvastatin 20 mg tablet 20 mg PO HS Cholesterol #30 tabs 12/04/21 spironolactone 25 mg tablet 25 mg PO DAILY PRN chf #120 tabs 06/03/22 mupirocin 2 % topical ointment 1 applic topical TID #22 grams 07/04/22 sulfamethoxazole 800 1 tab PO Q12H #20 tabs 07/04/22 mg-trimethoprim 160 mg tablet (Bactrim DS) Allergies Allergy/AdvReac Type Se
[2022-07-04 15:20] LABS: Uric Acid 4.5 mg/dl (3.5-8.5)
[2022-07-04 15:34] LABS: Basophils % 0.5 % (0.1-2.0); Eosinophils # 0.2 K/mm3 (0.0-0.4); Eosinophils % 2.1 % (0.1-12.0); Hematocrit 39.7 % (42.0-52.0); Hemoglobin 12.4 g/dL (14.1-18.0); Lymphocytes # 2.1 K/mm3 (0.7-4.5); Lymphocytes % 28.2 % (10-50); Mean Corpuscular HGB Conc 31.2 g/dL (31.8-35.4); Mean Corpuscular Hemoglobin 28.1 pg (27.0-31.2); Mean Corpuscular Volume 90.1 fl (80-94); Mean Platelet Volume 7.9 fl (7.4-10.4); Monocytes # 0.4 K/mm3 (0.1-1.0); Monocytes % 4.6 % (1.7-9.3); Neutrophils # 4.9 K/mm3 (1.8-7.8); Neutrophils % 64.6 % (37.0-80.0); Platelet Count 257 K/mm3 (142-424); Red Blood Count 4.41 M/mm3 (4.60-6.20); Red Cell Distribution Width 14.3 % (11.5-17.5); White Blood Count 7.5 K/mm3 (4.8-10.8)
[2022-07-04 15:56] VITALS: BP 138/77; PULSE 69; RESP 16; TEMP 36.8
== END 2022-07-04 16:00 | disposition home or self-care (01) ==
PROVIDERS: Emergency Provider Physician Assistant; PCP Internal Medicine
DX: L03.012 Cellulitis of left finger (principal)
CPT/HCPCS: 84550; 85025; 99212; G0463

== ENCOUNTER → 2022-07-07 17:13 | Outpatient (CLI) | payer MEDICARE, SELFPAY | PROVIDERS: PCP Internal Medicine; Visit Provider Internal Medicine | DX: L03.012 Cellulitis of left finger (principal) | CPT/HCPCS: 87070; 87077; 87186; 87205 ==

== ENCOUNTER → 2022-07-08 08:12 | Outpatient (POV) | payer MEDICARE, SELFPAY | PROVIDERS: Visit Provider Dermatology | DX: Z00.00 Encounter for general adult medical examination without abnormal findings (principal) ==

== ENCOUNTER → 2022-08-19 09:43 | Outpatient (POV) | payer MEDICARE, SELFPAY | PROVIDERS: Visit Provider Dermatology | DX: Z00.00 Encounter for general adult medical examination without abnormal findings (principal) ==

== ENCOUNTER → 2022-12-16 11:33 | Outpatient (CLI) | payer MEDICARE, SELFPAY ==
[2022-12-16 14:14] LABS: Chloride 106 mmol/L (98-107); Potassium 4.6 mmoL/L (3.5-5.1); Sodium 141 mmol/L (136-145)
[2022-12-16 14:15] LABS: Basophils % 0.7 % (0.1-2.0); Eosinophils # 0.1 K/mm3 (0.0-0.4); Eosinophils % 2.8 % (0.1-12.0); Hematocrit 39.7 % (42.0-52.0); Lymphocytes # 1.5 K/mm3 (0.7-4.5); Lymphocytes % 29.3 % (10-50); Mean Corpuscular HGB Conc 32.8 g/dL (31.8-35.4); Mean Corpuscular Hemoglobin 29.3 pg (27.0-31.2); Mean Corpuscular Volume 89.5 fl (80-94); Mean Platelet Volume 9.4 fl (7.4-10.4); Monocytes # 0.2 K/mm3 (0.1-1.0); Monocytes % 4.1 % (1.7-9.3); Neutrophils # 3.2 K/mm3 (1.8-7.8); Neutrophils % 63.1 % (37.0-80.0); Platelet Count 234 K/mm3 (142-424); Red Blood Count 4.43 M/mm3 (4.60-6.20); Red Cell Distribution Width 14.9 % (11.5-17.5)
[2022-12-16 14:16] LABS: Blood Urea Nitrogen 16 mg/dl (9-20); Estimated Glomerular Filt Rate 63 ml/min (>60); GFR (African American) 76 ML/MIN (>60)
[2022-12-16 14:17] LABS: Alanine Aminotransferase 59 U/L (12-78); Albumin Level 4.3 g/dl (3.5-5.0); Albumin/Globulin Ratio 1.9 (1.1-1.8); Alkaline Phosphatase 49 U/L (38-126); Anion Gap 12.6 mEq/L (5-15); Aspartate Amino Transferase 49 U/L (17-59); Bilirubin,Total 1.2 mg/dl (0.2-1.3); Carbon Dioxide 27 mmol/L (22.0-30.0); Cholesterol 106 mg/dl (140-200); Globulin 2.3 g/dL (1.3-3.2); Total Protein,Serum 6.6 g/dl (6.3-8.2); Triglycerides 315 mg/dl (30-150); VLDL Cholesterol 63 mg/dL (0-40)
[2022-12-16 14:18] LABS: Calcium 8.7 mg/dl (8.4-10.2); Chol/HDL Ratio 3.8 (1-3.5); Glucose 144 mg/dl (74-100); HDL Cholesterol 28 mg/dl (40-60)
[2022-12-16 14:28] LABS: Direct LDL Cholesterol 32.33 mg/dL (100-129)
[2022-12-16 15:00] LABS: Uric Acid 3.8 mg/dl (3.5-8.5)
[2022-12-16 15:31] LABS: Prostate Specific Ag Screen 1.6 ng/ml (0.0-4.0)
[2022-12-16 15:36] LABS: Hemoglobin A1C 7.4 % (4.0-6.0)
== END ==
PROVIDERS: PCP Internal Medicine; Visit Provider Internal Medicine
DX: E11.42 Type 2 diabetes mellitus with diabetic polyneuropathy (principal); I10 Essential (primary) hypertension; E78.5 Hyperlipidemia, unspecified; F41.9 Anxiety disorder, unspecified; M10.9 Gout, unspecified; Z12.5 Encounter for screening for malignant neoplasm of prostate; Z79.84 Long term (current) use of oral hypoglycemic drugs
CPT/HCPCS: 80053; 80061; 83036; 84550; 85025; G0103

== ENCOUNTER → 2023-03-09 13:37 | Outpatient (CLI) | payer MEDICARE, SELFPAY ==
--- NOTE | 2023-03-09 13:38 | US_ITS ---
FINAL REPORT TECHNIQUE: Ultrasound images of the thyroid were obtained. CLINICAL HISTORY: thyroid nodule FINDINGS: The right lobe of the thyroid has been resected. There is a questionable small amount of residual tissue in the right thyroid bed. The left lobe of the thyroid measures 3.95 cm. It is normal in echogenicity. IMPRESSION: No thyroid mass or nodule. Questionable small amount of residual tissue in the right thyroid bed. Reviewed, Interpreted and Dictated by Carlos Knox III, MD Transcribed by Nury Chen Authenticated and [facility]
== END ==
PROVIDERS: PCP Internal Medicine; Visit Provider Otolaryngology
DX: E04.1 Nontoxic single thyroid nodule (principal)
CPT/HCPCS: 76536

== ENCOUNTER → 2023-04-06 07:53 | Outpatient (CLI) | payer MEDICARE, SELFPAY ==
[2023-04-06 09:01] LABS: Free T4 (Free Thyroxine) 0.73 ng/dl (0.78-2.19)
[2023-04-06 09:15] LABS: Thyroid Stimulating Hormone 6.18 uIU/mL (0.465-4.68)
== END ==
PROVIDERS: PCP Internal Medicine; Visit Provider Otolaryngology
DX: F41.9 Anxiety disorder, unspecified (principal)
CPT/HCPCS: 36415; 84439; 84443

== ENCOUNTER → 2023-06-19 14:14 | Outpatient (CLI) | payer MEDICARE, SELFPAY ==
[2023-06-19 15:37] LABS: Hemoglobin A1C 7.7 % (4.0-6.0)
[2023-06-19 15:55] LABS: Creatinine,Urine Random 128 mg/dL (Not Estab.)
[2023-06-19 15:57] LABS: Microalbumin/Creatinine Ratio 4.9
[2023-06-19 17:02] LABS: Alanine Aminotransferase 43 U/L (12-78); Albumin Level 4.6 g/dl (3.5-5.0); Albumin/Globulin Ratio 1.6 (1.1-1.8); Alkaline Phosphatase 60 U/L (38-126); Anion Gap 17.7 mEq/L (5-15); Aspartate Amino Transferase 43 U/L (17-59); Bilirubin,Total 1.2 mg/dl (0.2-1.3); Blood Urea Nitrogen 16 mg/dl (9-20); Calcium 9.3 mg/dl (8.4-10.2); Carbon Dioxide 29 mmol/L (22.0-30.0); Chloride 100 mmol/L (98-107); Chol/HDL Ratio 4.7 (1-3.5); Cholesterol 136 mg/dl (140-200); Estimated Glomerular Filt Rate 70 ml/min (>60); GFR (African American) 84 ML/MIN (>60); Globulin 2.8 g/dL (1.3-3.2); Glucose 116 mg/dl (74-100); HDL Cholesterol 29 mg/dl (40-60); Potassium 4.7 mmoL/L (3.5-5.1); Sodium 142 mmol/L (136-145); Total Protein,Serum 7.4 g/dl (6.3-8.2); Uric Acid 3.9 mg/dl (3.5-8.5)
[2023-06-19 17:14] LABS: Direct LDL Cholesterol 37.17 mg/dL (100-129)
[2023-06-19 17:15] LABS: Triglycerides 420 mg/dl (30-150)
== END ==
PROVIDERS: PCP Internal Medicine; Visit Provider Internal Medicine
DX: E11.42 Type 2 diabetes mellitus with diabetic polyneuropathy (principal); I10 Essential (primary) hypertension; I49.5 Sick sinus syndrome; E78.5 Hyperlipidemia, unspecified; F98.5 Adult onset fluency disorder; F41.9 Anxiety disorder, unspecified; M10.9 Gout, unspecified; Z95.0 Presence of cardiac pacemaker; Z79.84 Long term (current) use of oral hypoglycemic drugs
CPT/HCPCS: 80053; 80061; 82043; 82570; 83036; 84550

== ENCOUNTER → 2023-06-30 15:52 | Outpatient (CLI) | payer MEDICARE, SELFPAY ==
[2023-06-30 18:06] LABS: Free T4 (Free Thyroxine) 0.88 ng/dl (0.78-2.19)
[2023-06-30 18:18] LABS: Thyroid Stimulating Hormone 4.03 uIU/mL (0.465-4.68)
== END ==
PROVIDERS: PCP Internal Medicine; Visit Provider Nurse Practitioner
DX: F41.9 Anxiety disorder, unspecified (principal)
CPT/HCPCS: 36415; 84439; 84443

== ENCOUNTER → 2023-09-02 08:18 | Outpatient (CLI) | payer MEDICARE, SELFPAY ==
[2023-09-02 10:00] LABS: Blood Urea Nitrogen 15 mg/dl (9-20); Estimated Glomerular Filt Rate 57 ml/min (>60); GFR (African American) 69 ML/MIN (>60)
[2023-09-02 10:12] LABS: Free T4 (Free Thyroxine) 1.03 ng/dl (0.78-2.19)
[2023-09-02 10:25] LABS: Thyroid Stimulating Hormone 2.65 uIU/mL (0.465-4.68)
== END ==
PROVIDERS: Nurse Practitioner; PCP Internal Medicine; Visit Provider Physician Assistant
DX: F41.9 Anxiety disorder, unspecified (principal); R07.9 Chest pain, unspecified; R06.00 Dyspnea, unspecified; I27.20 Pulmonary hypertension, unspecified; I10 Essential (primary) hypertension
CPT/HCPCS: 36415; 82565; 84439; 84443; 84520

== ENCOUNTER → 2023-09-30 10:39 | Outpatient (CLI) | payer MEDICARE, SELFPAY ==
[2023-09-30 12:17] LABS: Thyroid Stimulating Hormone 2.21 uIU/mL (0.465-4.68)
== END ==
PROVIDERS: PCP Internal Medicine; Visit Provider Nurse Practitioner
DX: F41.9 Anxiety disorder, unspecified (principal)
CPT/HCPCS: 36415; 84439; 84443

== ENCOUNTER → 2023-10-13 09:20 | Outpatient (CLI) | payer MEDICARE, SELFPAY | PROVIDERS: PCP Internal Medicine; Visit Provider Nurse Practitioner | DX: R10.13 Epigastric pain (principal) ==

== ENCOUNTER 2023-11-25 10:24 | Day surgery (SDC) | payer MEDICARE, SELFPAY ==
[2023-11-23 13:43] VITALS: BMI 32.8
[2023-11-25 10:45] VITALS: BP 171/93; PULSE 70; RESP 17; TEMP 36.1; O2SAT 96
[2023-11-25] MEDS: LACTATED RINGERS 1000ML 1,000 ML 25 ML IV (10:50)
--- NOTE | 2023-11-25 11:44 | P.PNANES_ITS ---
[facility] Disclaimer: The information contained in this section may have been updated after the patient was seen, as this information can be updated by other users. Medical History Abnormal EKG Abnormal EKG Angina, class IV CAD (coronary artery disease) Complications, pacemaker cardiac, mechanical Diastolic dysfunction Edema Family history of heart disease History of MRSA infection Hypothyroidism Palpitations Tachycardia Thyroid nodule Surgical History H/O arthroscopic knee surgery History of carpal tunnel release History of hernia repair History of incision and drainage History of permanent cardiac pacemaker placement S/P trigger finger release Family History Other Family history of cancer Family history of diabetes mellitus Family history of heart disease Social History Smoking Status: Never smoker alcohol intake: never substance use type: denies use current occupational status: disabled Travel in the last 8 weeks: None household members: spouse caffeine: No [facility] Anesthesia Checklist Patient Identification Patient Identification: Arm Band Structural Data Admitted From: Home Planned Operative Procedure/s: EGD/Colonoscopy Consent for Planned Operative Procedure(s) Verified: Yes Verified Documents: Surgical Consent and History and Physical NPO Status Verified Time NPO: 00:00 Additional verifications Anesthesia Reactions: No Hx Blood Transfusions: No Blood Transfusion Reaction: No Airway Assessment Mallampati Score:: Class II C-Spine Mobility Assessed: Yes TMJ Mobility Assessed: Yes Dentition: Poor Dentition (upper partial removed) Neurological Assessment Level of Consciousness: Awake and Alert Anesthesia Plan Anesthesia Risk discussed: Yes Anesthesia Plan: Verified ASA Class: III Anesthesia Type: MAC
[2023-11-25 12:15] VITALS: O2SAT 96
[2023-11-25 12:55] VITALS: BP 97/66; PULSE 70; RESP 16; TEMP 36.3; O2SAT 92
--- NOTE | 2023-11-25 12:56 | HMH.SCOPE ---
Procedure: Date: 11/25/23 Patient Date of :: 1970 Procedure Performed:: EGD Indications:: The patient is a 53-year-old who presents for EGD evaluation of heartburn and noncardiac chest pain Performing Provider:: De Henson MD Referring Provider:: Jeri Chinchilla APRN Sedation:: See RN records Procedure:: The gastroscope was gently passed through the incisoral orifice into the oral cavity and under direct visualization the esophagus was intubated. The endoscope was passed down the esophagus, through the stomach, and into the duodenum. Color, texture, mucosa, and anatomy of the esophagus, stomach, and duodenum were carefully examined with the scope. Findings:: The examined esophagus appeared normal. Biopsies were obtained from the mid and distal esophagus for histology. The Z-line was measured at 40 cm. There was mild inflammation of the stomach characterized by erythema. Biopsies were obtained from the antrum and body for histology. The examined duodenum appeared normal. The patient tolerated the procedure well. There were no complications. Recommendations:: Await pathology result Follow-up with referring provider. Complications:: None Estimated blood obtained (mL): 0 Colonoscopy Component Colonoscopy Component Was a colonoscopy performed during today's procedure?: No
--- NOTE | 2023-11-25 13:00 | HMH.SCOPE ---
Procedure: Date: 11/25/23 Patient Date of :: 1970 Procedure Performed:: Colonoscopy Indications:: The patient is a 53-year-old who presents for colonoscopy for high risk colorectal cancer screening. There is a family history of colon cancer in a first-degree relative (mother). There is a family history of pancreatic cancer in a first-degree relative (sister) Performing Provider:: De Henson MD Referring Provider:: Jeri Jacobs APRN Sedation:: See RN records Procedure:: After placing the patient in the left lateral decubitus position, the colonoscopy was gently inserted into the rectum and under direct visualization advanced to the cecum which was identified by transillumination in the right lower quadrant, identification of the ileocecal valve, appendiceal orifice, and cecal strap. Color, texture, mucosa, and anatomy of the colon were carefully examined with the scope. Findings:: The quality of the bowel preparation in the cecum and ascending colon was fair. Time was spent irrigating and cleansing the mucosa for improved evaluation. The remaining examined colon appeared normal. On retroflexion view there were internal hemorrhoids seen. The patient tolerated the procedure well. There were no complications. Recommendations:: Repeat colonoscopy in 3 years for high risk colorectal cancer screening Complications:: None Estimated blood obtained (mL): 0 Colonoscopy Component Colonoscopy Component Was a colonoscopy performed during today's procedure?: Yes Recommended follow up colonoscopy of at least 10 years?: Yes
[2023-11-25 13:05] VITALS: BP 100/63; PULSE 70; RESP 16; O2SAT 93
[2023-11-25 13:15] VITALS: BP 107/66; PULSE 70; RESP 16; O2SAT 95
[2023-11-27 09:04] LABS: POC Glucose,Bedside 134 (70-110)
== END 2023-11-25 13:25 | disposition home or self-care (01) ==
PROVIDERS: PCP Internal Medicine; Visit Provider Internal Medicine
PROC: 0DJ08ZZ Inspection of Upper Intestinal Tract, Via Natural or Artificial Opening Endoscopic (ICD-10-PCS; CPT 43235; principal; 2023-11-25 12:00)
DX: Z12.11 Encounter for screening for malignant neoplasm of colon (principal); R12 Heartburn; R07.89 Other chest pain; Z80.0 Family history of malignant neoplasm of digestive organs; K64.8 Other hemorrhoids; K29.50 Unspecified chronic gastritis without bleeding; E11.9 Type 2 diabetes mellitus without complications
CPT/HCPCS: 43239; G0105; 82962; 88305

== ENCOUNTER 2023-12-08 14:36 | Outpatient (POV) | payer MEDICARE, SELFPAY | END 2023-12-08 23:59 | disposition home or self-care (01) | LOC: SC 14:36 | PROVIDERS: PCP Internal Medicine; Visit Provider Dermatology | DX: Z00.00 Encounter for general adult medical examination without abnormal findings (principal) ==

== ENCOUNTER 2023-12-28 12:50 | Outpatient (CLI) | payer MEDICARE, SELFPAY ==
[2023-12-28 13:18] LABS: Basophils % 0.6 % (0.1-2.0); Eosinophils # 0.1 K/mm3 (0.0-0.4); Eosinophils % 2.4 % (0.1-12.0); Hematocrit 38.5 % (42.0-52.0); Hemoglobin 12.4 g/dL (14.1-18.0); Lymphocytes # 1.7 K/mm3 (0.7-4.5); Lymphocytes % 32.7 % (10-50); Mean Corpuscular HGB Conc 32.2 g/dL (31.8-35.4); Mean Corpuscular Hemoglobin 29.9 pg (27.0-31.2); Mean Corpuscular Volume 92.8 fl (80-94); Mean Platelet Volume 9.2 fl (7.4-10.4); Monocytes # 0.2 K/mm3 (0.1-1.0); Monocytes % 4.7 % (1.7-9.3); Neutrophils % 59.5 % (37.0-80.0); Platelet Count 235 K/mm3 (142-424); Red Blood Count 4.15 M/mm3 (4.60-6.20); Red Cell Distribution Width 15.1 % (11.5-17.5); White Blood Count 5.1 K/mm3 (4.8-10.8)
[2023-12-28 13:43] LABS: Hemoglobin A1C 8.4 % (4.0-6.0)
[2023-12-28 14:04] LABS: Alanine Aminotransferase 41 U/L (12-78); Albumin Level 4.3 g/dl (3.5-5.0); Alkaline Phosphatase 54 U/L (38-126); Anion Gap 11.8 mEq/L (5-15); Aspartate Amino Transferase 42 U/L (17-59); Bilirubin,Total 0.9 mg/dl (0.2-1.3); Blood Urea Nitrogen 12 mg/dl (9-20); Carbon Dioxide 29 mmol/L (22.0-30.0); Chloride 102 mmol/L (98-107); Chol/HDL Ratio 5.4 (1-3.5); Cholesterol 140 mg/dl (140-200); Estimated Glomerular Filt Rate 78 ml/min (>60); GFR (African American) 94 ML/MIN (>60); Globulin 2.1 g/dL (1.3-3.2); Glucose 171 mg/dl (74-100); HDL Cholesterol 26 mg/dl (40-60); Potassium 4.8 mmoL/L (3.5-5.1); Total Protein,Serum 6.4 g/dl (6.3-8.2); Uric Acid 3.2 mg/dl (3.5-8.5)
[2023-12-28 14:06] LABS: Triglycerides 470 mg/dl (30-150)
[2023-12-28 14:07] LABS: Sodium 138 mmol/L (136-145)
[2023-12-28 14:15] LABS: Direct LDL Cholesterol 41.77 mg/dL (100-129)
[2023-12-28 14:35] LABS: Prostate Specific Ag Screen 1.4 ng/ml (0.0-4.0)
[2023-12-29 13:50] LABS: Vitamin B12 272 pg/mL (239-931)
[2023-12-29 16:35] LABS: Iron 67 ug/dL (49-181)
[2023-12-29 18:05] LABS: Total Iron Binding Capacity 287 ug/dL (261-462)
== END 2023-12-28 23:59 | disposition home or self-care (01) ==
LOC: LAB.DROPOF 12:51
PROVIDERS: PCP Internal Medicine; Visit Provider Internal Medicine
DX: E11.42 Type 2 diabetes mellitus with diabetic polyneuropathy; D64.9 Anemia, unspecified; E78.5 Hyperlipidemia, unspecified; I49.5 Sick sinus syndrome; I10 Essential (primary) hypertension; M10.9 Gout, unspecified; Z79.84 Long term (current) use of oral hypoglycemic drugs; Z95.0 Presence of cardiac pacemaker; Z79.899 Other long term (current) drug therapy; Z12.5 Encounter for screening for malignant neoplasm of prostate
CPT/HCPCS: 80053; 80061; 82607; 83036; 83540; 83550; 84550; 85025; G0103

== ENCOUNTER 2024-01-27 14:28 | Outpatient (POV) | payer MEDICARE, SELFPAY | END 2024-01-27 23:59 | disposition home or self-care (01) | LOC: SC 14:29 | PROVIDERS: Visit Provider Specialist/Technologist | DX: Z00.00 Encounter for general adult medical examination without abnormal findings (principal) ==

== ENCOUNTER 2024-03-29 14:08 | Outpatient (CLI) | payer MEDICARE, SELFPAY ==
--- NOTE | 2024-03-29 14:09 | US_ITS ---
FINAL REPORT TECHNIQUE: Limited sonographic images of the thyroid were obtained. CLINICAL HISTORY: 6 month f/u of thyroid -- hypothyroidism -- rt lobe removed COMPARISON: 03/09/2023 FINDINGS: Patient is status post right thyroidectomy. There is a questionable small amount of residual soft tissue in the right thyroid. The left lobe of the thyroid measures 3.7 x 1.7 x 1.7 cm. No mass or nodule is identified. The isthmus measures 3 mm. IMPRESSION: Stable thyroid ultrasound as compared to previous. Reviewed, Interpreted and Dictated by Carlos Knox III, MD Transcribed by Annalise Suazo Authenticated and [facility]
[2024-03-29 14:36] LABS: Hemoglobin A1C 7.6 % (4.0-6.0)
[2024-03-29 15:44] LABS: Thyroid Stimulating Hormone 2.18 uIU/mL (0.465-4.68)
== END 2024-03-29 23:59 | disposition home or self-care (01) ==
LOC: RAD 14:09
PROVIDERS: PCP Internal Medicine; Visit Provider Nurse Practitioner
DX: E03.9 Hypothyroidism, unspecified (principal); C73 Malignant neoplasm of thyroid gland; E11.49 Type 2 diabetes mellitus with other diabetic neurological complication; Z79.84 Long term (current) use of oral hypoglycemic drugs
CPT/HCPCS: 36415; 76536; 83036; 84443

== ENCOUNTER 2024-06-08 07:20 | Outpatient (CLI) | payer MEDICARE, SELFPAY ==
[2024-06-08 07:53] VITALS: BMI 32.5
[2024-06-08 08:00] VITALS: BP 131/85; PULSE 70; RESP 18; O2SAT 98
[2024-06-08 08:25] LABS: Chloride 103 mmol/L (98-107); Potassium 3.6 mmoL/L (3.5-5.1); Sodium 138 mmol/L (136-145)
[2024-06-08 08:28] LABS: Anion Gap 10.6 mEq/L (5-15); Blood Urea Nitrogen 16 mg/dl (9-20); Carbon Dioxide 28 mmol/L (22.0-30.0); Creatinine Clearance Estimated 98 mL/min (50-200); Estimated Glomerular Filt Rate 63 ml/min (>60); GFR (African American) 76 ML/MIN (>60)
[2024-06-08 08:29] LABS: Calcium 9.4 mg/dl (8.4-10.2); Glucose 140 mg/dl (74-100)
[2024-06-08 08:30] VITALS: BP 126/65; PULSE 70; RESP 18; O2SAT 97
[2024-06-08 08:45] VITALS: BP 121/72; PULSE 71; RESP 18; O2SAT 98
[2024-06-08] MEDS: 0.9 % SODIUM CHLORIDE 50 ML VIAL IV (08:50)
[2024-06-08] MEDS: IOPAMIDOL-370 (76%);100ML BOTTLE 80 ML IV (08:50)
[2024-06-08] MEDS: SODIUM CHLORIDE 0.9% 10ML SYR (RAD ONLY) 10 ML IV (08:50)
== END 2024-06-08 09:00 | disposition home or self-care (01) ==
LOC: RAD 07:20
PROVIDERS: PCP Internal Medicine; Visit Provider Internal Medicine
DX: I25.10 Atherosclerotic heart disease of native coronary artery without angina pectoris (principal); R06.02 Shortness of breath; R06.00 Dyspnea, unspecified; Z82.49 Family history of ischemic heart disease and other diseases of the circulatory system
CPT/HCPCS: 75574; 80048; Q9967

== ENCOUNTER 2024-08-09 14:47 | Outpatient (CLI) | payer MEDICARE, SELFPAY ==
--- NOTE | 2024-08-09 14:59 | CA_ITS ---
APPROVED REPORT EXAM: Comprehensive 2D, Doppler, and color-flow Echocardiogram Surgical Dental Assistant: Natalie Wooten RT(R) Ht: 5 ft 9 in Wt: 215lbs BSA: 2.13 BP: 123/80 mmHg Indications: palpitations, edema, HTN, DM, SOB, hyperlipdemia, HFpEF, CAD, pacemaker, abn EKG, tachycardia, CHF 2D Dimensions LA Volume 31.60 mL LA Volume Index 14.84 mL/m2 (M/F) 16-34 EF AP4 50.70 % GL Strain -16.2 % M-Mode Dimensions RVDd 2.09 cm (0.9-2.6) LA Diam 2.95 cm (1.9-4.0) LVDd 4.51 cm (3.5-5.7) LVDs 3.30 cm (3.5-5.7) IVSd 0.68 cm (0.6-1.1) PWd 0.68 cm (0.6-1.1) EF (Teich) 52.50% FS 26.80% EDV (Teich) 92.90 mL ESV (Teich) 44.10 mL LV Diastology E Decel Time 167 (160-240 msec) E/A Ratio 0.9 Mitral Valve MV E Max Chang. 91.0 (40-130 cm/s) MV A Velocity 96.0 (40-130 cm/s) E/A Ratio 0.96 MV PHT 49.0 ms Left Ventricle The left ventricle is normal size. The left ventricular systolic function is normal. The left ventricular ejection fraction is within the normal range. There is increased LV wall thickness. There is normal LV segmental wall motion. Transmitral Doppler flow pattern suggests impaired LV relaxation. LVEF is 55%. Right Ventricle The right ventricle is normal size. The right ventricular systolic function is normal. There is a device lead in the right ventricle. Atria The left atrium size is normal. The right atrium size is normal. There is no Doppler evidence of interatrial shunt. Aortic Valve The aortic valve is mildly thickened. There is no aortic valvular stenosis. Trace aortic regurgitation is present. Mitral Valve Mild mitral annular calcification. The mitral valve leaflets are mildly thickened. No evidence of mitral valve stenosis. Trace mitral regurgitation. Tricuspid Valve The tricuspid valve leaflets are thin and pliable. Trace tricuspid regurgitation. There is insufficient TR jet to estimate RVSP. Pulmonic Valve The pulmonary valve is normal in structure. Trace pulmonic regurgitation. Great Vessels The aortic root is normal in size. The ascending aorta is not well-visualized. The IVC is not well-visualized. Pericardium There is no pericardial effusion. Other Information Study Quality: Fair Conclusion Normal biventricular systolic function. No significant valvular stenosis or regurgitation. Electronically signed by : Annmarie Alcantara MD 08/15/2024 01:13:14
== END 2024-08-09 23:59 | disposition home or self-care (01) ==
LOC: RT 14:48
PROVIDERS: PCP Internal Medicine; Visit Provider Nurse Practitioner Family
DX: I50.32 Chronic diastolic (congestive) heart failure (principal); R06.02 Shortness of breath
CPT/HCPCS: 93306

== ENCOUNTER 2024-08-25 14:03 | Outpatient (CLI) | payer MEDICARE, SELFPAY ==
--- NOTE | 2024-08-25 14:06 | XR_ITS ---
PROCEDURE INFORMATION: Exam: XR Left Hand Exam date and time: 08/25/2024 2:26 PM Age: 54 years old Clinical indication: Injury or trauma; Other: Nail puncture; Other: Pain; Additional info: Puncture wound with nail left hand TECHNIQUE: Imaging protocol: Radiologic exam of the left hand. Views: 1 or 2 views. COMPARISON: No relevant prior studies available. FINDINGS: Bones/joints: Normal. Soft tissues: Normal. IMPRESSION: No acute findings.
== END 2024-08-25 23:59 | disposition home or self-care (01) ==
LOC: RAD 14:04
PROVIDERS: PCP Internal Medicine; Visit Provider Internal Medicine
DX: S61.432A Puncture wound without foreign body of left hand, initial encounter (principal)
CPT/HCPCS: 73120

== ENCOUNTER 2024-08-30 13:20 | Outpatient (POV) | payer MEDICARE, SELFPAY | END 2024-08-30 23:59 | disposition home or self-care (01) | LOC: SC 08-31 08:11 | PROVIDERS: Visit Provider Dermatology | DX: Z00.00 Encounter for general adult medical examination without abnormal findings (principal) ==

== ENCOUNTER 2024-12-21 11:07 | Outpatient (CLI) | payer MEDICARE, SELFPAY ==
[2024-12-21 11:31] LABS: Basophils % 0.6 % (0.1-2.0); Eosinophils # 0.1 K/mm3 (0.0-0.4); Eosinophils % 2.6 % (0.1-12.0); Hematocrit 39.8 % (42.0-52.0); Hemoglobin 13.2 g/dL (14.1-18.0); Lymphocytes % 36.3 % (10-50); Mean Corpuscular HGB Conc 33.2 g/dL (31.8-35.4); Mean Corpuscular Hemoglobin 28.7 pg (27.0-31.2); Mean Corpuscular Volume 86.5 fl (80-94); Mean Platelet Volume 10.1 fl (7.4-10.4); Monocytes # 0.2 K/mm3 (0.1-1.0); Monocytes % 4.2 % (1.7-9.3); Neutrophils # 3.1 K/mm3 (1.8-7.8); Neutrophils % 56.1 % (37.0-80.0); Platelet Count 244 K/mm3 (142-424); Red Cell Distribution Width 14.3 % (11.5-17.5); White Blood Count 5.4 K/mm3 (4.8-10.8)
[2024-12-21 12:03] LABS: Alanine Aminotransferase 75 U/L (12-78); Albumin Level 4.7 g/dl (3.5-5.0); Alkaline Phosphatase 44 U/L (38-126); Aspartate Amino Transferase 58 U/L (17-59); Bilirubin,Direct 0.5 mg/dl (0.0-0.4); Bilirubin,Indirect 0.8 mg/dL (0.0-0.9); Bilirubin,Total 1.3 mg/dl (0.2-1.3); Bilirubin,Unconjugated 0.8 mg/dL (0.0-1.1); Blood Urea Nitrogen 11 mg/dl (9-20); Calcium 9.7 mg/dl (8.4-10.2); Carbon Dioxide 27 mmol/L (22.0-30.0); Chloride 101 mmol/L (98-107); Chol/HDL Ratio 6.4 (1-3.5); Cholesterol 206 mg/dl (140-200); Estimated Glomerular Filt Rate 57 ml/min (>60); GFR (African American) 69 ML/MIN (>60); Glucose 171 mg/dl (74-100); HDL Cholesterol 32 mg/dl (40-60); Sodium 137 mmol/L (136-145); Total Protein,Serum 6.8 g/dl (6.3-8.2)
[2024-12-21 12:04] LABS: Triglycerides 471 mg/dl (30-150)
[2024-12-21 12:14] LABS: Direct LDL Cholesterol 60.08 mg/dL (100-129)
[2024-12-21 12:21] LABS: Free T4 (Free Thyroxine) 0.77 ng/dl (0.78-2.19)
[2024-12-21 12:34] LABS: Thyroid Stimulating Hormone 2.94 uIU/mL (0.465-4.68)
== END 2024-12-21 23:59 | disposition home or self-care (01) ==
LOC: LAB 11:08
PROVIDERS: PCP Internal Medicine; Visit Provider Internal Medicine
DX: E03.9 Hypothyroidism, unspecified (principal); Z82.49 Family history of ischemic heart disease and other diseases of the circulatory system; I11.0 Hypertensive heart disease with heart failure; I50.32 Chronic diastolic (congestive) heart failure; I27.20 Pulmonary hypertension, unspecified; E78.5 Hyperlipidemia, unspecified; R07.89 Other chest pain; I25.10 Atherosclerotic heart disease of native coronary artery without angina pectoris
CPT/HCPCS: 36415; 80048; 80061; 80076; 84439; 84443; 85025

== ENCOUNTER 2025-01-18 13:44 | Outpatient (CLI) | payer MEDICARE, SELFPAY ==
--- NOTE | 2025-01-18 14:15 | CT_ITS ---
FINAL REPORT TECHNIQUE: Thin section axial images were obtained from the lung bases to the pubic symphysis without IV contrast. Coronal reconstruction images were obtained from the axial data. Exam was performed using dose reduction technique. CLINICAL HISTORY: Right lower quadrant pain, nausea x 1 week FINDINGS: There are no renal or ureteral stones. There is no hydronephrosis or perinephric stranding. The gallbladder is present. There is diffuse fatty infiltration of the liver with no focal lesion. The remaining unenhanced solid abdominal organs are unremarkable. There is no evidence of small bowel obstruction. The appendix is normal. GI tract is without acute abnormality. There is no lymphadenopathy or ascites. No acute osseous abnormality is identified. IMPRESSION: No renal or ureteral stones. No hydronephrosis. No acute abnormality in the abdomen or pelvis. Reviewed, Interpreted and Dictated by Nayana Gallegos MD Transcribed by Tashia Campoverde Authenticated and [facility]
== END 2025-01-18 23:59 | disposition home or self-care (01) ==
LOC: RAD 13:46
PROVIDERS: PCP Internal Medicine; Visit Provider Internal Medicine
DX: R10.31 Right lower quadrant pain (principal)
CPT/HCPCS: 74176

== ENCOUNTER 2025-02-03 08:17 | Day surgery (SDC) | payer MEDICARE, SELFPAY ==
--- NOTE | 2025-02-03 07:08 | IR_ITS ---
APPROVED REPORT Patient Location: Outpatient PROCEDURES Right heart catheterization INDICATION Pulmonary hypertension Informed consent was obtained prior to the procedure. COMPLICATIONS NONE Estimated Blood Loss: LESS THAN 10 ML TECHNIQUE One percent lidocaine was used to anesthetize the right anterior aspect of the neck. A hair blender needle was used to identify the right internal jugular vein. Following this a larger cannulation needle was used to cannulate the right internal jugular vein and a wire was passed into the vein. Prior to the 7 Italian sheath being inserted the wire was confirmed under fluoroscopic guidance to be in the inferior vena cava. A 7 Italian sheath was introduced and a Otego-Kristofer catheter was floated using hemodynamic waveforms in the pulmonary artery, right ventricle , and right atrium. Saturations were obtained in the pulmonary artery and the right atrium. At the end of the procedure the patient was transferred to the postop holding area in stable condition for sheath removal. ANGIOGRAPHIC RESULTS Right atrial pressure 15 mmHg Right ventricular 35/15 mmHg Pulmonary artery pressure 32/24 mmHg Pulmonary artery occlusion pressure 18 mmHg Right atrial saturation 72% Pulmonary artery saturation 72% Aortic saturation 100% Hemoglobin 13.5 Cardiac output 5.3 L/min IMPRESSION Mild pulmonary hypertension with elevated right and left-sided filling pressures PLAN 1. Per cardiology team Electronically signed by : Hermes Clifton MD 02/03/2025 10:25:47
[2025-02-03 08:23] VITALS: BMI 32.1
[2025-02-03 08:24] VITALS: BP 152/92; PULSE 70; PULSE 76; RESP 18; TEMP 36.9; O2SAT 96
[2025-02-03 08:45] LABS: Basophils % 0.3 % (0.1-2.0); Eosinophils # 0.2 K/mm3 (0.0-0.4); Eosinophils % 2.6 % (0.1-12.0); Hematocrit 40.9 % (42.0-52.0); Hemoglobin 13.5 g/dL (14.1-18.0); Lymphocytes % 35.1 % (10-50); Mean Corpuscular Hemoglobin 28.8 pg (27.0-31.2); Mean Corpuscular Volume 87.4 fl (80-94); Mean Platelet Volume 10.1 fl (7.4-10.4); Monocytes # 0.3 K/mm3 (0.1-1.0); Monocytes % 5.4 % (1.7-9.3); Neutrophils # 3.2 K/mm3 (1.8-7.8); Neutrophils % 56.1 % (37.0-80.0); Nucleated Red Blood Cells # 0 10^3/uL; Nucleated Red Blood Cells % 0 %; Platelet Count 260 K/mm3 (142-424); Red Blood Count 4.68 M/mm3 (4.60-6.20); Red Cell Distribution Width 14.1 % (11.5-17.5); Red Cell Distribution Width-SD 45.2 fL; White Blood Count 5.8 K/mm3 (4.8-10.8)
[2025-02-03 08:54] LABS: Chloride 102 mmol/L (98-107)
[2025-02-03 08:55] LABS: Potassium 4.3 mmoL/L (3.5-5.1); Sodium 139 mmol/L (136-145)
[2025-02-03 08:58] LABS: Anion Gap 14.3 mEq/L (5-15); Blood Urea Nitrogen 17 mg/dl (9-20); Calcium 9.6 mg/dl (8.4-10.2); Carbon Dioxide 27 mmol/L (22.0-30.0); Creatinine Clearance Estimated 96 mL/min (50-200); Estimated Glomerular Filt Rate 63 ml/min (>60); GFR (African American) 76 ML/MIN (>60); Glucose 162 mg/dl (74-100)
[2025-02-03] MEDS: diphenhydrAMINE 50MG/ML VIAL 50 MG IV (09:41)
[2025-02-03] MEDS: LIDOCAINE 1% 10ML MDV 10 ML IJ (09:41)
[2025-02-03] MEDS: HEPARIN 1,000 UNITS/500ML NS (CATH LAB) 3000 UNIT IV (09:42)
[2025-02-03] MEDS: 0.9 % SODIUM CHLORIDE 500 ML 25 ML IV (09:42)
[2025-02-03 10:13] VITALS: BP 119/82; PULSE 69; PULSE 70; RESP 18; O2SAT 99
[2025-02-03 10:21] VITALS: BP 121/84; PULSE 80; RESP 16; O2SAT 99
[2025-02-03] MEDS: FENTANYL 100MCG/2ML VIAL 50 MCG IV (10:23)
[2025-02-03] MEDS: MIDAZOLAM HCL 1MG/ML 5ML VIAL 1 MG IV (10:23)
[2025-02-03 10:25] VITALS: BP 133/86; PULSE 71; RESP 18; O2SAT 100
[2025-02-03 10:30] VITALS: BP 126/80; PULSE 71; RESP 18; O2SAT 100
[2025-02-03 14:43] LABS: CATHL Arterial O2 SAT 72.4 % (90-100); CATHL Venous O2 SAT 72.5 % (75-80)
== END 2025-02-03 11:01 | disposition home or self-care (01) ==
PROVIDERS: PCP Internal Medicine; Visit Provider Internal Medicine
DX: I27.20 Pulmonary hypertension, unspecified (principal); R06.09 Other forms of dyspnea; Z88.8 Allergy status to other drugs, medicaments and biological substances; Z79.84 Long term (current) use of oral hypoglycemic drugs; Z79.85 Long-term (current) use of injectable non-insulin antidiabetic drugs; Z79.899 Other long term (current) drug therapy; Z95.818 Presence of other cardiac implants and grafts; Z82.49 Family history of ischemic heart disease and other diseases of the circulatory system; I25.118 Atherosclerotic heart disease of native coronary artery with other forms of angina pectoris; I50.32 Chronic diastolic (congestive) heart failure; E03.9 Hypothyroidism, unspecified; E11.9 Type 2 diabetes mellitus without complications; I47.10 Supraventricular tachycardia, unspecified; I95.9 Hypotension, unspecified; I11.0 Hypertensive heart disease with heart failure
CPT/HCPCS: 80048; 82810; 85025; 93451; 99152; C1894; J1200; J1644; J3010

== ENCOUNTER 2025-03-31 09:00 | Outpatient (CLI) | payer MEDICARE, SELFPAY ==
[2025-03-31 10:02] LABS: Basophils % 0.3 % (0.1-2.0); Eosinophils # 0.2 Kmm3 (0.0-0.4); Eosinophils % 2.6 % (0.1-12.0); Hematocrit 40.1 % (42.0-52.0); Hemoglobin 13.3 g/dL (14.1-18.0); Immature Granulocytes # 0.02 10^3uL; Immature Granulocytes % 0.3 %; Lymphocytes # 1.8 K/mm3 (0.7-4.5); Mean Corpuscular HGB Conc 33.2 g/dL (31.8-35.4); Mean Corpuscular Hemoglobin 29.3 pg (27.0-31.2); Mean Corpuscular Volume 88.3 fl (80-94); Mean Platelet Volume 10.6 fl (7.4-10.4); Monocytes # 0.3 K/mm3 (0.1-1.0); Monocytes % 4.5 % (1.7-9.3); Neutrophils # 3.6 K/mm3 (1.8-7.8); Neutrophils % 61.3 % (37.0-80.0); Nucleated Red Blood Cells # 0 10^3/uL; Nucleated Red Blood Cells % 0 %; Platelet Count 243 K/mm3 (142-424); Red Blood Count 4.54 M/mm3 (4.60-6.20); Red Cell Distribution Width 13.9 % (11.5-17.5); White Blood Count 5.8 K/mm3 (4.8-10.8)
[2025-03-31 10:34] LABS: Blood Urea Nitrogen 15 mg/dl (9-20); Calcium 9.6 mg/dl (8.4-10.2); Carbon Dioxide 29 mmol/L (22.0-30.0); Chloride 98 mmol/L (98-107); Estimated Glomerular Filt Rate 63 ml/min (>60); GFR (African American) 76 ML/MIN (>60); Glucose 203 mg/dl (74-100); Sodium 136 mmol/L (136-145)
[2025-03-31 10:53] LABS: Free T4 (Free Thyroxine) 1.03 ng/dl (0.78-2.19)
--- NOTE | 2025-03-31 11:00 | US_ITS ---
FINAL REPORT TECHNIQUE: Sonographic images of the thyroid gland were obtained in the longitudinal and transverse planes. CLINICAL HISTORY: Hypothyroidism COMPARISON: 03/29/2024 FINDINGS: Right thyroid lobe is surgically absent. There is a small oval hypoechoic focus in the right surgical bed measuring 8 mm, likely unchanged. The left lobe measures 1.9 x 4.3 x 1.6 cm. The left lobe is homogeneous. Tiny colloid cyst. The isthmus measures 4 mm. This is normal. IMPRESSION: Small oval hyperechoic focus in the right thyroid bed is unchanged from prior exam. Reviewed, Interpreted and Dictated by Nayana Gallegos MD Transcribed by Tova Philip Authenticated and [facility]
[2025-03-31 11:10] LABS: Thyroid Stimulating Hormone 2.33 uIU/mL (0.465-4.68)
== END 2025-03-31 23:59 | disposition home or self-care (01) ==
PROVIDERS: Internal Medicine; PCP Internal Medicine; Visit Provider Nurse Practitioner
DX: R93.89 Abnormal findings on diagnostic imaging of other specified body structures (principal); E03.9 Hypothyroidism, unspecified; R10.31 Right lower quadrant pain; I25.10 Atherosclerotic heart disease of native coronary artery without angina pectoris
CPT/HCPCS: 36415; 76536; 80048; 84439; 84443; 85025

== ENCOUNTER 2025-04-25 15:22 | Outpatient (CLI) | payer MEDICARE, SELFPAY ==
--- OUTSIDE RECORDS SUMMARY | 2025-04-25 15:24 | XMS_ITS | Clinical Summary ---
Author Organization [facility] [place] [facility] [address] Care Team Providers Care Credit Reporting Clerk Name Role Phone Haseeb Brewer MD Primary Care Provider [phone] Allergies Active Allergy Reactions Criticality Noted Date Comments Zolpidem Other - please docum ent in the comment field Low 03/09/2024 Family History Medical History Relation Name Comments Coronary artery disease Father Heart attack Father Colon cancer Mother Heart attack Mother Lung cancer Mother Pancreatic cancer Sister Relation Name Status Comments Father Mother Sister Social History Tobacco Use Types Packs/Day Years Used Date Smoking Tobacco: Never Smokeless Tobacco: Current Alcohol Use Standard Drinks/Week Comments No 0 (1 standard drink = 0.6 oz pur e alcohol) Sex and Gender Information Value Date Recorded Sex Assigned at Not on file Legal Sex Male 8:43 PM EDT Gender Identity Not on file Sexual Orientation Not on file Last Filed Vital Signs Vital Sign Reading Time Taken Comments Blood Pressure 118/82 03/10/2024 2:39 PM EDT Pulse 77 03/10/2024 2:39 PM EDT Temperature - - Respiratory Rate 21 03/10/2024 12:09 PM EDT Oxygen Saturation 97% 03/10/2024 2:27 PM EDT Inhaled Oxygen Concentration - - Weight 92.5 kg (204 lb) 03/10/2024 12:09 PM EDT Height 172.7 cm (5' 8 ) 03/10/2024 12:09 PM EDT Body Mass Index 31.02 03/10/2024 12:09 PM EDT Plan of Treatment Health Maintenance Due Date Last Done Comments [facility]-Depression Screening 1970 [facility]-HIV Screening 1970 [facility]-Hepatitis C Screening 1970 [facility]-Medicare Annual Wellness (AWV) 1970 [facility]-/Child/Adol SDOH Screenings 1970 [facility]-Obesity Intervention 1974 [facility]- SDOH Screenings 1986 [facility]Y-Adult SDOH Screenings 1986 [facility]Y-Hepatitis B Vaccines (1 of 3 - 19+ 3-dose series) [address] CT Colonography 2013 Colonoscopy 2013 FIT-DNA 2013 FIT 2013 FOBT 2013 Sigmoidoscopy 2013 UKY-Colorectal Cancer Screening 2013 UKY-Pneumococcal Vaccine: 50 + Years (1 of 1 - PCV) 2018 UKY-Zoster Vaccines (1 of 2) 2018 DID-[id number]-37 Vaccine (3 - season) 2024 02/20/2021, 01/23/2021 [facility]Y-Influenza Vaccine ([place] n Ended) 2025 [facility]Y-DTaP,Tdap,and Td Vaccine s (2 - Td or Tdap) 07/05/2029 07/05/2019 HPV Vaccines Aged Out No longer eligi ble based on patient's age to complete this topic [facility]Y-HIB Vaccines Aged Out No longer e ligible based on patient's age to complete this topic [facility]Y-Hepatitis A Vaccines Aged Out No longer eligible based on patient's age to complete this topic UKY-IPV Vaccines Aged Out No longer e ligible based on patient's age to complete this topic UKY-Rotavirus Vaccines Aged Out No lo nger eligible based on patient's age to complete this topic Medical Devices Implanted Type Area Tenter Device Identifier Shelf Expiration Date Model / Serial / Lot Rv Lead St Vinod-05/04/2015 Implanted:05/04 (Quantity not on file) Lead Chest [employer] [id number] / / Ra Lead St Vinod-05/04/2015 Implanted:05/04 (Quantity not on file) Lead Chest [employer] 188TC / / [employer] Pacemaker-2020 Implanted:06/05 (Quantity not on file) Pacemaker Chest Invuity L311 / / Description:NON-conditional MIXED CIED SYSTEM: Generator MODEL: [id number], implanted on 06/05/2024 [employer] VINOD LEADS implanted on 05/04/2015 RV MODEL: [id number] RA MODEL: [id number] Additional Health Concerns Infection Onset Date Last Indicated 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
[2025-04-25 15:53] LABS: Hematocrit 37.5 % (42.0-52.0); Hemoglobin 12.3 g/dL (14.1-18.0); Immature Granulocytes % 0.3 %; Mean Corpuscular HGB Conc 32.8 g/dL (31.8-35.4); Mean Corpuscular Hemoglobin 29.1 pg (27.0-31.2); Mean Corpuscular Volume 88.9 fl (80-94); Nucleated Red Blood Cells % 0 %; Platelet Count 242 K/mm3 (142-424); Red Blood Count 4.22 M/mm3 (4.60-6.20); Red Cell Distribution Width-SD 44.5 fL; White Blood Count 5.9 K/mm3 (4.8-10.8)
[2025-04-25 16:22] LABS: Alanine Aminotransferase 54 U/L (12-78); Albumin Level 4.3 g/dl (3.5-5.0); Albumin/Globulin Ratio 1.8 (1.1-1.8); Alkaline Phosphatase 53 U/L (38-126); Anion Gap 15.2 mEq/L (5-15); Aspartate Amino Transferase 43 U/L (17-59); Bilirubin,Total 0.7 mg/dl (0.2-1.3); Blood Urea Nitrogen 11 mg/dl (9-20); Calcium 9.5 mg/dl (8.4-10.2); Carbon Dioxide 28 mmol/L (22.0-30.0); Chloride 97 mmol/L (98-107); Cholesterol 219 mg/dl (140-200); Creatinine,Serum 1.00 mg/dl (0.66-1.25); Estimated Glomerular Filt Rate 77 ml/min (>60); GFR (African American) 94 ML/MIN (>60); Globulin 2.4 g/dL (1.3-3.2); Glucose 122 mg/dl (74-100); HDL Cholesterol 28 mg/dl (40-60); Potassium 4.2 mmoL/L (3.5-5.1); Sodium 136 mmol/L (136-145); Total Protein,Serum 6.7 g/dl (6.3-8.2); Uric Acid 3.5 mg/dl (3.5-8.5)
[2025-04-25 16:32] LABS: Triglycerides 651 mg/dl (30-150)
[2025-04-25 17:45] LABS: Hemoglobin A1C 9.1 % (4.0-6.0)
== END 2025-04-25 23:59 | disposition home or self-care (01) ==
LOC: LAB.DROPOF 15:23
PROVIDERS: PCP Internal Medicine; Visit Provider Internal Medicine
DX: E11.42 Type 2 diabetes mellitus with diabetic polyneuropathy (principal); I10 Essential (primary) hypertension; M10.9 Gout, unspecified; E78.5 Hyperlipidemia, unspecified; Z12.5 Encounter for screening for malignant neoplasm of prostate
CPT/HCPCS: 80053; 80061; 82043; 82570; 83036; 84550; 85025; G0103

== ENCOUNTER 2025-07-19 14:42 | Outpatient (CLI) | payer MEDICARE, SELFPAY ==
--- OUTSIDE RECORDS SUMMARY | 2025-07-19 14:45 | XMS_ITS | Clinical Summary ---
Author Organization [facility] Address [address] [place] [address] Care Team Providers Care Shirt Presser Name Role Phone Haseeb Brewer MD Primary Care Provider [phone] Allergies Active Allergy Reactions Criticality Noted Date [...] 2018 [facility]Y-Zoster Vaccines (1 of 2) 2018 [id number] Vaccine (3 - season) 2025 02/20/2021, 01/23/2021 [facility]Y-Influenza Vaccine (#1) 2025 [facility]Y-DTaP,Tdap,and Td Vaccine s (2 - [...] this topic Medical Devices Implanted Type Area Machine Cementer Device Identifier Shelf Expiration Date Model / Serial / Lot Rv Lead St Vinod-05/04/2015 Implanted:05/04 (Quantity not on file) Lead Chest [employer] [id number] / / Ra Lead St Vinod-05/04/2015 Implanted:05/04 (Quantity not on file) Lead Chest [employer] 188TC / / [employer] Pacemaker-2020 Implanted:06/05 (Quantity not on file) Pacemaker Chest Debteye L311 / / Description:NON-conditional MIXED CIED SYSTEM: Generator MODEL: [id number], implanted on 06/05/2024 [employer] VINOD LEADS implanted on 05/04/2015 RV MODEL: [id number] RA MODEL: [id number] Additional Health Concerns Infection Onset Date Last Indicated 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
--- OUTSIDE RECORDS SUMMARY | 2025-07-19 14:45 | XMS_ITS | Clinical Summary ---
Author Organization [facility] Address [address] [place] [address] Care Team Providers Care Molding Cutter Name Role Phone Haseeb Brewer MD Primary Care Provider [phone] Allergies Active Allergy Reactions Criticality Noted Date Comments Zolpidem Tartrate Hallucinations 01/24/2019 Medications FIBER PO Take by mouth Daily. Active FLUoxetine (PROzac) 20 MG capsule Take 20 mg by mouth Daily. Active aspirin 325 MG tablet Take 325 mg by mouth Daily. Active furosemide (LASIX) 40 MG tablet Take 40 mg by mouth Daily As Needed. Active allopurinol (ZYLOPRIM) 300 MG tablet Take 300 mg by mouth Daily. Active rOPINIRole (REQUIP) 1 MG tablet Take 1 mg by mouth Every Night. Take 1 hour before bedtime. Active nebivolol (BYSTOLIC) 10 MG tablet Take 10 mg by mouth Every Night. Active sotalol (BETAPACE) 80 MG tabletIndication s:Palpitations Take 1 tablet by mouth 2 (Two) Times a Day. 60 tablet 6 01/24/2019 Active Active Problems Problem Noted Date Diagnosed Date Coronary artery disease invo lving [place] coronary artery of [place] heart without angina pectoris 01/24/2019 Essential hypertension 01/24/2019 Chronic kidney disease 01/24/2019 Palpitations 01/24/2019 Resolved Problems Problem Noted Date Diagnosed Date Resolved Date Chronic systolic (congestive) heart failure 01/24/2019 01/24/2019 Family History Medical History Relation Name Comments Heart disease Father Heart disease Mother Relation Name Status Comments Father Mother Social History Tobacco Use Types Packs/Day Years Used Date Smoking Tobacco: Never Smokeless Tobacco: Current Chew Alcohol Use Standard Drinks/Week Comments No 0 (1 standard drink = 0.6 oz pur e alcohol) AUDIT-C Answer Date Recorded Frequency of Alcohol Consumption Never 01/24/2019 Average Number of Drinks Not on file 019 Frequency of Binge Drinking Not on file 10/2018 Abuse Screen Answer Date Recorded Unsafe at Home or Work/School Not on file Feels Threatened by Someone? Not on file 06/2023 Does Anyone Keep You from Co ntacting Others or Doint Things Outside the Home? Not on file 08/03/2023 Physical Sign of Abuse Present Not on file 1 Housing Stability Answer Date Recorded Current Living Arrangements Not on file 06/2023 Potentially Unsafe Housing Conditions Not on raya e 08/03/2023 Family and Community Support Answer Rusty e Recorded Help with Day-to-Day Activities Not on file 08/03/2023 Lonely or Isolated Not on file 08/03/2023 Employment Answer Date Recorded Do you want help finding or keeping work or a eli b? Not on file 08/03/2023 Disabilities Answer Date Recorded Concentrating, Remembering, or Making Decisions Difficulty Not on file 08/03/2023 Doing Errands Independently Difficulty Not on fi le 08/03/2023 Education Answer Date Recorded Help with school or training? Not on file Preferred Language Not on file 08/03/2023 Sex and Gender Information Value Date Recorded Sex Assigned at Not on file Legal Sex Male 1:27 PM EDT Gender Identity Not on file Sexual Orientation Not on file Last Filed Vital Signs Vital Sign Reading Time Taken Comments Blood Pressure 122/80 01/24/2019 8:35 AM EDT Pulse 70 01/24/2019 8:35 AM EDT Temperature - - Respiratory Rate - - Oxygen Saturation - - Inhaled Oxygen Concentration - - Weight 106 kg (234 lb) 01/24/2019 8:35 AM EDT Height 175.3 cm (5' 9 ) 01/24/2019 8:35 AM EDT Body Mass Index 34.56 01/24/2019 8:35 AM EDT Plan of Treatment Health Maintenance Due Date Last Done Comments TDAP/TD VACCINES (1 - Tdap) 1987 COLOGUARD 2013 COLON CANCER SCREENING 5 YEAR SIGMOIDOSCOPY 2013 COLONOSCOPY [address] CANCER SCREENING [address] COLONOGRAPHY 2013 FECAL OCCULT BLOOD TEST 2013 FIT Testing (1 year) 2013 Pneumococcal Vaccine 50+ (1 of 1 - PCV) 2018 ZOSTER VACCINE (1 of 2) 2018 ANNUAL PHYSICAL 01/21/2019 HEPATITIS C SCREENING 01/21/2019 INFLUENZA VACCINE 05/26/[address] [facility] MEDICARE ADVANTAGE Care Teams Molding Cutter Relationship Specialty Start Date End Date Haseeb Brewer MD [address] [facility] [address] [place] [address] PCP - General Internal Medicine 01/24/19
[2025-07-19 16:06] LABS: Chloride 96 mmol/L (98-107); Potassium 4.1 mmoL/L (3.5-5.1); Sodium 140 mmol/L (136-145)
[2025-07-19 16:09] LABS: Blood Urea Nitrogen 20 mg/dl (9-20); Creatinine,Serum 1.80 mg/dl (0.66-1.25); Estimated Glomerular Filt Rate 39 ml/min (>60); GFR (African American) 47 ML/MIN (>60)
[2025-07-19 16:10] LABS: Anion Gap 17.1 mEq/L (5-15); Calcium 10.2 mg/dl (8.4-10.2); Carbon Dioxide 31 mmol/L (22.0-30.0); Glucose 110 mg/dl (74-100)
[2025-07-19 16:18] LABS: NT Pro Brain Natriuretic Pep. < 20.0 pg/mL (0-125)
== END 2025-07-19 23:59 | disposition home or self-care (01) ==
LOC: LAB 14:43
PROVIDERS: PCP Internal Medicine; Visit Provider Internal Medicine
DX: I11.0 Hypertensive heart disease with heart failure (principal); I50.30 Unspecified diastolic (congestive) heart failure; E78.5 Hyperlipidemia, unspecified
CPT/HCPCS: 36415; 80048; 83880

== ENCOUNTER 2025-07-24 09:10 | Outpatient (CLI) | payer MEDICARE, SELFPAY ==
--- OUTSIDE RECORDS SUMMARY | 2025-07-24 09:16 | XMS_ITS | Clinical Summary ---
Author Organization [facility] Address [address] [place] [address] Care Team Providers Care Senior Systems Engineer Name Role Phone Haseeb Brewer MD Primary Care Provider [phone] Allergies Active Allergy Reactions Criticality Noted Date [...] Diagnosed Date Coronary artery disease invo lving [place] coronary artery of [place] heart without angina pectoris 01/24/2019 Essential hypertension [...] C SCREENING 01/21/2019 INFLUENZA VACCINE 05/26/2025 Insurance [facility] MEDICARE ADVANTAGE Care Teams Senior Systems Engineer Relationship Specialty Start Date End Date Haseeb Brewer MD [address] [facility] [address] [place] [address] PCP - General Internal Medicine 01/24/19
--- OUTSIDE RECORDS SUMMARY | 2025-07-24 09:16 | XMS_ITS | Clinical Summary ---
Author Organization [facility] Address [facility] [place] [address] Care Team Providers Care Powdered Metal Supervisor Name Role Phone Haseeb Brewer MD Primary Care Provider [phone] Allergies Active Allergy Reactions Criticality Noted Date [...] 2018 [facility]Y-Zoster Vaccines (1 of 2) 2018 [id number] Vaccine (3 - season) 2025 02/20/2021, 01/23/2021 [...] this topic Medical Devices Implanted Type Area Aspnet Developer Device Identifier Shelf Expiration Date Model / Serial / Lot Rv Lead St Vinod-05/04/2015 Implanted:05/04 (Quantity not on file) Lead Chest [employer] [id number] / / Ra Lead St Vinod-05/04/2015 Implanted:05/04 (Quantity not on file) Lead Chest [employer] 188TC / / [employer] Pacemaker-2020 Implanted:06/05 (Quantity not on file) Pacemaker Chest [place] L311 / / Description:NON-conditional MIXED CIED SYSTEM: Generator MODEL: [id number], implanted on 06/05/2024 ST VINOD LEADS implanted on 05/04/2015 RV MODEL: [id number] RA MODEL: [id number] Additional Health Concerns Infection Onset Date Last Indicated 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 [facility] [address] [place] [address] PCP - General 03/08/21
[2025-07-24 10:21] LABS: Anion Gap 14.1 mEq/L (5-15); Blood Urea Nitrogen 18 mg/dl (9-20); Calcium 9.7 mg/dl (8.4-10.2); Carbon Dioxide 28 mmol/L (22.0-30.0); Chloride 101 mmol/L (98-107); Creatinine,Serum 1.40 mg/dl (0.66-1.25); Estimated Glomerular Filt Rate 52 ml/min (>60); GFR (African American) 63 ML/MIN (>60); Glucose 126 mg/dl (74-100); Potassium 4.1 mmoL/L (3.5-5.1); Sodium 139 mmol/L (136-145)
== END 2025-07-24 23:59 | disposition home or self-care (01) ==
LOC: LAB 09:11
PROVIDERS: PCP Internal Medicine; Visit Provider Physician Assistant
DX: I50.30 Unspecified diastolic (congestive) heart failure (principal); E78.5 Hyperlipidemia, unspecified; E11.9 Type 2 diabetes mellitus without complications
CPT/HCPCS: 36415; 80048